=== PATIENT | female | born 1935 | race Caucasian/White ===

== ENCOUNTER 2017-06-21 03:02 | Observation (INO) | payer MEDICARE, BC ==
[2017-06-21] MEDS ORDERED: Budesonide 0.5 MG/2 ML Neb Susp ONE (03:33)
[2017-06-21] MEDS ORDERED: Albuterol/Ipratropium 3.0-0.5 MG/3 ML Neb Soln ONE (03:33)
[2017-06-21] MEDS ORDERED: predniSONE 10 MG Tab ONE (04:00)
[2017-06-21] MEDS ORDERED: methylPREDNISolone Sodium Succinate 125 MG/2 ML SDV ONE (05:47)
[2017-06-21] MEDS: methylPREDNISolone Sodium Succinate 125 MG/2 ML SDV IVPUSH SCH ×3 (06:00→17:56)
[2017-06-21] MEDS ORDERED: Acetaminophen 325 MG Tab PO PRN (06:25)
[2017-06-21] MEDS ORDERED: Acetaminophen 650 MG Supp RECTAL PRN (06:25)
[2017-06-21] MEDS ORDERED: Albuterol 0.083% 2.5 MG/3 ML Neb Soln INH PRN (06:27)
[2017-06-21] MEDS ORDERED: Sodium Chloride 0.9% 10 ML Syringe FLUSH PRN (06:39)
[2017-06-21] MEDS ORDERED: Albuterol/Ipratropium 3.0-0.5 MG/3 ML Neb Soln NEB PRN (06:40)
[2017-06-21] MEDS ORDERED: Nicotine Polacrilex 2 MG Gum CHEW PRN (06:44)
[2017-06-21] MEDS: Albuterol/Ipratropium 3.0-0.5 MG/3 ML Neb Soln NEB SCH ×4 (07:33→20:42)
--- NOTE | 2017-06-21 08:43 | CR ---
Chest 1V Frontal HISTORY: SOB COMPARISON: 06/11/2015 FINDINGS: Lungs are hyperinflated with flattening of the diaphragm consistent with COPD. No acute infiltrate is identified. Cardiomediastinal silhouette is within normal limits. No vascular redistribution or pleu ral fluid can be seen. Bony structures and soft tissues are unremarkable. IMPRESSION: Prominent COPD. No acute chest abnormality or significant interval change is identified.
--- NOTE | 2017-06-21 12:20 | HP ---
IDENTIFYING DATA: Janine Babb is an 81-year-old single female from [place], [place]. CHIEF COMPLAINT: "I am short of breath." HISTORY OF PRESENT ILLNESS: Elderly female has a history of previous and ongoing tobacco use with advanced chronic obstructive pulmonary disease. She uses maintenance Anoro Ellipta inhaler as well as p.r.n. use of a rescue albuterol inhaler. Additionally, she requires oxygen continuously with daytime activities as well as nighttime use with a concentrator. She reports an approximate 48-hour history of increasing shortness of breath, chest tightness, and wheeze. She has had no fevers, chills, sore throat, nasal congestion, coryza, or purulent sputum production. Influenza and pneumococcal vaccines are current. With exacerbation of chronic respiratory symptoms, she presented to the emergency room and is now admitted to observation. PAST MEDICAL HISTORY: She has a known history of hypothyroidism with levothyroxine replacement therapy. Additionally, the records indicate mild visual impairment of macular degeneration as well as her underlying emphysematous lung disease. ALLERGIES: NONE NOTED. MEDICATIONS: 1. Anoro Ellipta 62.5/25 mcg inhaler 1 puff once daily. 2. Levothyroxine 75 mcg daily. 3. Albuterol metered-dose inhaler 2 puffs q.4 hours p.r.n. dyspnea. 4. Mirtazapine 30 mg at bedtime. 5. MiraLAX 17 g daily p.r.n. constipation. 6. Multivitamins 1 daily. 7. Calcium carbonate with vitamin D 600/200 mg b.i.d. 8. [place]-3 fish oil capsules 1000 mg daily. HABITS: Continues to smoke though consumption is decreased from 1 pack per day to current use of 3 cigarettes daily. Caffeine intake varies from 2 to many cups of coffee daily dependent on daily activities. Alcohol use is rare at less than 1 drink per week. SOCIAL HISTORY: Retired, single, currently residing in her independent dwelling in [place]. The family lives in the immediate vicinity and provides assistance with housekeeping and meal preparation. She does perform light household work. She continues to drive. FAMILY HISTORY: Denies familial history of acute respiratory infections. REVIEW OF SYSTEMS: NEUROLOGIC: Does have mild visual impairment, though with corrective lenses she is able to read standard print. No history of cataracts, glaucoma, strokes, or seizures. Does have slight decline in auditory acuity. CARDIAC: No history of hypertension, diabetes, congenital heart disease, rheumatic fever, murmur, LA, congestive heart failure, chest pain, palpitations, or syncope. RESPIRATORY: Chronic obstructive pulmonary disease. No acute febrile illnesses. Denies a history of tuberculosis. GI: Denies hepatitis, jaundice, gallbladder disease, chronic dyspepsia, nausea, diarrhea. Constipation is managed with p.r.n. use of laxatives. : Rises twice nightly to void. No urinary incontinence. No history of chronic renal disease. MUSCULOSKELETAL: Denies arthralgias. PHYSICAL EXAMINATION: GENERAL: Appearance is that of an elderly mildly dyspneic female with pursed lip breathing. VITAL SIGNS: Afebrile. Respiratory rate 22, O2 saturations maintained greater than 90% with supplemental O2 at 2 L by nasal cannula. HEENT: Canals and TMs are normal. Pupils are reactive to light. Sclerae are anicteric. Oral mucosa is mildly dry on presentation. NECK: No adenopathy or thyromegaly. Brisk carotid pulses. No bruits or JVD. LUNGS: Symmetrical resonant, markedly diminished sounds, mild end-expiratory wheezes. No rales, or rhonchi heard. No retractions. Increased AP chest diameter is noted. HEART: Regular with distant sounds. No murmurs or gallops. Normal S1, S2. ABDOMEN: Soft, nontender, and nondistended. No organomegaly. Active sounds. Good femoral pulses. No abdominal bruits or CVA pain. EXTREMITIES: Good radial and posterior tibial pulses. No open lesions. Slight edema at the ankles bilaterally. SKIN: Warm and pink. Brisk capillary refill. LABORATORY DATA: Chest x-ray, no acute infiltrates. WBC within normal range. IMPRESSION: 1. Chronic obstructive pulmonary disease with acute exacerbation. 2. Ongoing tobacco use. 3. Hypothyroidism with levothyroxine replacement therapy. 4. History of sleep disruption with bedtime use of Remeron. PLAN: The patient will be admitted to observation bed at the medical floor. We will provide oxygen, IV Solu-Medrol, and inhaled bronchodilator therapies with scheduled and p.r.n. use of DuoNeb by nebulizer therapies. Continue with nasal cannula oxygen at 2 L/minute. Provide a low-sodium diet assistance with performance of ADLs and her maintenance thyroid medications. Full code status is instituted. Anticipate a hospital stay of less than 48 hours with return home with family supervision. Does not feel she has a need for home care services in the residence. At the current time if febrile illness develops or she has indications of acute pulmonary sepsis with purulent sputum production, we will consider initiation of antibiotic therapies. Gaurav Lawson MD /[id number]
[2017-06-21] MEDS: LEVOTHYROXINE 75 MCG PO SCH (16:17)
[2017-06-21] MEDS: Mirtazapine 15 MG Tab PO SCH (20:43)
[2017-06-22] MEDS: methylPREDNISolone Sodium Succinate 125 MG/2 ML SDV IVPUSH SCH ×2 (00:26→05:42)
--- NOTE | 2017-06-22 06:05 | PCM.SN ---
- Free Text/Narrative Note: Time: 05:30 am. Mrs. Babb IV has infiltrated, IV Solumedrol 125 mg due 0600 0; tolerating fluids, has 4 out 5 doses of Solumedrol, vital signs stable A: IV infiltrated P; will DC Solumedrol, order Prednisone 40mg po with breakfast. Continue present plan of care.
[2017-06-22] MEDS: Albuterol/Ipratropium 3.0-0.5 MG/3 ML Neb Soln NEB SCH ×4 (07:15→21:18)
[2017-06-22] MEDS: LEVOTHYROXINE 75 MCG PO SCH (08:20)
[2017-06-22] MEDS ORDERED: Polyethylene Glycol 3350 Powder 17 GM Packet PO PRN (08:30)
[2017-06-22] MEDS: predniSONE 20 MG Tab PO SCH (08:36)
--- NOTE | 2017-06-22 10:13 | PCM.PN ---
- General Info Date of Service: 06/22/17 Subjective Update: Ms. Mayorga is an 81-year-old woman who was admitted early yesterday morning by Dr. Lawson with shortness of breath secondary to COPD exacerbation and underlying viral bronchitis. She has improved moderately since admission with less shortness of breath and cough. She has remained afebrile and has been hemodynamically stable. Continues to require increased level of supplemental oxygen. Functional Status: Reports: Tolerating Diet, Ambulating, Urinating - Review of Systems General: Reports: Weakness. Denies: Fever, Chills Pulmonary: Reports: Shortness of Breath, Cough. Denies: Pleuritic Chest Pain, Sputum, Hemoptysis, Wheezing Cardiovascular: Reports: Dyspnea on Exertion. Denies: Chest Pain, Palpitations , Orthopnea, PND, Edema Gastrointestinal: Reports: No Symptoms - Patient Data Vitals - Most Recent: Last Vital Signs Temp 97 F 06/22/17 07:00 Pulse 96 06/22/17 07:15 Resp 17 06/22/17 07:00 BP 106/55 L 06/22/17 07:00 Pulse Ox 79 L 06/22/17 07:00 Weight - Most Recent: 101 lb 15.985 oz I&O - Last 24 Hours: Intake & Output 06/21/17 06/22/17 06/22/17 22:59 06:59 14:59 Intake Total 300 200 Output Total 600 300 Balance 300 -400 -300 Lab Results Last 24 Hours: Laboratory Results - last 24 hr 06/22/17 Range/Units 04:15 Sodium 144 (140-148) mmol/L Potassium 4.5 (3.6-5.2) mmol/L Chloride 103 (100-108) mmol/L Carbon Dioxide 36 H (21-32) mmol/L Anion Gap 9.5 (5.0-14.0) mmol/L BUN 17 (7-18) mg/dL Creatinine 0.7 (0.6-1.0) mg/dL Est Cr Clr Drug Dosing 45.26 mL/min Estimated GFR (MDRD) > 60 (>60) Glucose 142 H (74-106) mg/dL Calcium 9.4 (8.5-10.1) mg/dL Med Orders - Current: Current Medications Acetaminophen (Tylenol) 650 mg PO Q4H PRN PRN Reason: Pain/Fever Albuterol/Ipratropium (Duoneb 3.0-0.5 Mg/3 Ml) 3 ml NEB QIDRT [facility] Last Admin: 06/22/17 07:15 Dose: 3 ml Albuterol/Ipratropium (Duoneb 3.0-0.5 Mg/3 Ml) 3 ml NEB Q3H PRN PRN Reason: Shortness of Breath Levothyroxine Sodium (Levothyroxine) 75 mcg PO ACBREAKFAST [facility] Last Admin: 06/22/17 08:20 Dose: 75 mcg Mirtazapine (Remeron) 30 mg PO BEDTIME [facility] Last Admin: 06/21/17 20:43 Dose: 30 mg Nicotine Polacrilex (Nicorelief) 2 mg CHEW Q2H PRN PRN Reason: tobacco craving Polyethylene Glycol (Miralax) 17 gm PO DAILY PRN PRN Reason: Constipation Last Admin: 06/22/17 10:04 Dose: 17 gm Prednisone (Prednisone) 40 mg PO WITHBREAKFAST [facility] Last Admin: 06/22/17 08:36 Dose: 40 mg Sodium Chloride (Saline Flush) 10 ml FLUSH ASDIRECTED PRN PRN Reason: Keep Vein Open Discontinued Medications Acetaminophen (Tylenol) 650 mg RECTAL Q4H PRN PRN Reason: Pain/Fever Albuterol (Proventil Neb Soln) 2.5 mg INH Q2H PRN PRN Reason: Shortness of Breath Albuterol/Ipratropium (Duoneb 3.0-0.5 Mg/3 Ml) 3 ml .ROUTE .STK-MED ONE Stop: 06/21/17 03:34 Budesonide (Pulmicort) 0.5 mg .ROUTE .STK-MED ONE Stop: 06/21/17 03:34 Methylprednisolone Sodium Succinate (Solu-Medrol) 125 mg IVPUSH Q6H [facility] Stop: 06/22/17 06:01 Last Admin: 06/22/17 05:42 Dose: Not Given Methylprednisolone Sodium Succinate (Solu-Medrol) Confirm Administered Dose 125 mg .ROUTE .STK-MED ONE Stop: 06/21/17 05:48 Last Admin: 06/21/17 09:00 Dose: Not Given Prednisone (Prednisone) 40 mg .ROUTE .STK-MED ONE Stop: 06/21/17 04:01 - Exam Quality Assessment: Supplemental Oxygen, DVT Prophylaxis General: Alert, Oriented, Cooperative, Mild Distress Lungs: Decreased Breath Sounds. No: Rales, Rhonchi, Rub, Wheezing Cardiovascular: Regular Rate, Regular Rhythm, No Murmurs GI/Abdominal Exam: Soft, Non-Tender, No Organomegaly, No Distention Extremities: Non-Tender, No Pedal Edema Skin: Warm, Dry, Intact - Problem List Review Problem List Initiated/Reviewed/Updated: Yes - My Orders Last 24 Hours: My Active Orders 06/22/17 08:30 Polyethylene Glycol 3350 [MiraLAX] 17 gm PO DAILY PRN - Plan Plan:: ASSESSMENT AND PLAN COPD EXACERBATION SECONDARY TO BRONCHITIS-likely viral in nature, no indication for antibiotic therapy at the present time. She has improved since admission with less shortness of breath and cough. -Nebulizer therapy as ordered -Supplemental oxygen as needed -Prednisone 40 mg by mouth daily -Continue to hold on antibiotic therapy with no evidence of underlying bacterial infection at the present time HYPOXIC RESPIRATORY FAILURE-secondary to COPD exacerbation as above -Management as above NICOTINIC DEPENDENCE -Nicotinic gum as needed MAINTENANCE ISSUES -DVT prophylaxis; SCUDs -GI prophylaxis; not indicated -Alejandro catheter; not indicated -Nutrition; regular diet -Nicotinic dependence; as above CODE STATUS-FULL CODE ADMISSION STATUS-this patient will be admitted to observation status, expect no more than a one night hospital stay for evaluation and management of problems as outlined above. DISPOSITION-anticipate discharge to home after the hospital stay. PRIMARY CARE PROVIDER-Dr. Wilhelm
[2017-06-22] MEDS ORDERED: Bisacodyl 5 MG Tab PO PRN (18:05)
[2017-06-22] MEDS: Mirtazapine 15 MG Tab PO SCH (21:15)
[2017-06-23] MEDS: Albuterol/Ipratropium 3.0-0.5 MG/3 ML Neb Soln NEB SCH ×2 (07:33→10:48)
[2017-06-23] MEDS: LEVOTHYROXINE 75 MCG PO SCH (07:42)
[2017-06-23] MEDS: predniSONE 20 MG Tab PO SCH (09:09)
--- NOTE | 2017-06-23 09:51 | PCM.DCSUM1 ---
Discharge Summary - Hospital Course Brief History: This patient is an 81-year-old woman who was admitted to observation status through the emergency department with COPD exacerbation secondary to viral upper respiratory tract infection. - Discharge Data Discharge Date: 06/23/17 Discharge Disposition: Home, Self-Care 01 Condition: Fair - Discharge Diagnosis/Problem(s) (1) Bronchitis SNOMED Code(s): 97006626 ICD Code: J40 - BRONCHITIS, NOT SPECIFIED ACUTE OR CHRONIC Status: Acute Current Visit: Yes (2) Chronic respiratory failure with hypoxia Status: Acute Current Visit: No (3) Asthma exacerbation in COPD SNOMED Code(s): 34488888892513800 ICD Code: J44.1 - CHRONIC OBSTRUCTIVE PULMONARY DISEASE W (ACUTE) EXACERBATION; J45.901 - UNSPECIFIED ASTHMA WITH (ACUTE) EXACERBATION Status: Acute Current Visit: No (4) Tobacco dependence syndrome SNOMED Code(s): 71732910 ICD Code: F17.200 - NICOTINE DEPENDENCE, UNSPECIFIED, UNCOMPLICATED Status : Chronic Current Visit: No - Patient Summary/Data Hospital Course: This patient is an 81-year-old woman with known oxygen-dependent COPD. She developed symptoms of increased shortness of breath with the week prior to admission. This had been associated with occasional cough and nasal congestion with postnasal drainage. On evaluation emergency room department white count was normal and chest x-ray showed no obvious infiltrates. She was felt to have COPD exacerbation secondary to viral upper respiratory tract infection. She was admitted to observation status and given IV fluids for hydration as well as nebulizer therapy and Solu-Medrol. Oxygenation improved and the Solu-Medrol was converted to oral prednisone. She felt her breathing was improved from admission but not yet back to baseline. She was offered prescription for nebulizer therapy at home which she refused. She was also offered home care with home physical therapy occupational therapy which she also refused. She will be discharged on additional 4 days of prednisone 40 mg daily. Follow-up appointment will be scheduled with her primary care provider Dr. Wilhelm within one week. Activity will be as tolerated and she will resume her usual diet. - Patient Instructions Diet: Usual Diet as Tolerated Activity: As Tolerated Other/Special Instructions: Please schedule follow-up appointment with Dr. Wilhelm early next week. - Discharge Plan Prescriptions/Med Rec: Prednisone [IJD: predniSONE] 40 mg PO WITHBREAKFAST #8 tablet Home Medications: Home Meds Calcium Citrate/Vitamin D3 [Calcium Citrate + D] 1 each PO BID 05/13/14 [History ] Levothyroxine Sodium 75 mcg PO DAILY 05/13/14 [History] [place]-3 Fatty Acids [Fish Oil] 300 mg PO DAILY 05/13/14 [History] Albuterol [IMW: Albuterol HFA] 2 puff INH Q4H PRN 06/21/17 [History] Multivitamin [Daily Multiple Vitamin] 1 tab PO DAILY 06/21/17 [History] Umeclidinium Brm/Vilanterol Tr [Anoro Ellipta 62.5-25 Mcg INH] 1 each IH DAILY 06/21/17 [History] Prednisone [IJD: predniSONE] 40 mg PO WITHBREAKFAST #8 tablet 06/23/17 [Rx] Referrals: Arnulfo Wilhelm MD [Primary Care Provider] - - Patient Data Vitals - Most Recent: Last Vital Signs Temp 96.7 F 06/23/17 07:55 Pulse 92 06/23/17 07:55 Resp 17 06/23/17 07:55 BP 164/90 H 06/23/17 07:55 Pulse Ox 97 06/23/17 07:55 Weight - Most Recent: 101 lb 15.985 oz I&O - Last 24 hours: Intake & Output 06/22/17 06/23/17 06/23/17 22:59 06:59 14:59 Intake Total 980 120 Output Total 500 650 Balance 480 -530 Med Orders - Current: Current Medications Acetaminophen (Tylenol) 650 mg PO Q4H PRN PRN Reason: Pain/Fever Albuterol/Ipratropium (Duoneb 3.0-0.5 Mg/3 Ml) 3 ml NEB QIDRT [facility] Last Admin: 06/23/17 07:33 Dose: 3 ml Albuterol/Ipratropium (Duoneb 3.0-0.5 Mg/3 Ml) 3 ml NEB Q3H PRN PRN Reason: Shortness of Breath Bisacodyl (Dulcolax) 10 mg PO DAILY PRN PRN Reason: Constipation Last Admin: 06/22/17 18:40 Dose: 10 mg Levothyroxine Sodium (Levothyroxine) 75 mcg PO ACBREAKFAST [facility] Last Admin: 06/23/17 07:42 Dose: 75 mcg Mirtazapine (Remeron) 30 mg PO BEDTIME [facility] Last Admin: 06/22/17 21:15 Dose: 30 mg Nicotine Polacrilex (Nicorelief) 2 mg CHEW Q2H PRN PRN Reason: tobacco craving Polyethylene Glycol (Miralax) 17 gm PO DAILY PRN PRN Reason: Constipation Last Admin: 06/22/17 10:04 Dose: 17 gm Prednisone (Prednisone) 40 mg PO WITHBREAKFAST [facility] Last Admin: 06/23/17 09:09 Dose: 40 mg Sodium Chloride (Saline Flush) 10 ml FLUSH ASDIRECTED PRN PRN Reason: Keep Vein Open Discontinued Medications Acetaminophen (Tylenol) 650 mg RECTAL Q4H PRN PRN Reason: Pain/Fever Albuterol (Proventil Neb Soln) 2.5 mg INH Q2H PRN PRN Reason: Shortness of Breath Albuterol/Ipratropium (Duoneb 3.0-0.5 Mg/3 Ml) 3 ml .ROUTE .STK-MED ONE Stop: 06/21/17 03:34 Budesonide (Pulmicort) 0.5 mg .ROUTE .STK-MED ONE Stop: 06/21/17 03:34 Methylprednisolone Sodium Succinate (Solu-Medrol) 125 mg IVPUSH Q6H [facility] Stop: 06/22/17 06:01 Last Admin: 06/22/17 05:42 Dose: Not Given Methylprednisolone Sodium Succinate (Solu-Medrol) Confirm Administered Dose 125 mg .ROUTE .STK-MED ONE Stop: 06/21/17 05:48 Last Admin: 06/21/17 09:00 Dose: Not Given Prednisone (Prednisone) 40 mg .ROUTE .STK-MED ONE Stop: 06/21/17 04:01 *Q Meaningful Use (DIS) - VTE *Q VTE Criteria *Q: - Stroke *Q Stroke Criteria *Q: - AMI *Q AMI Criteria *Q:
[2017-06-23 11:17] VITALS: BP 145/83
== END 2017-06-23 12:45 | disposition home or self-care (01) ==
LOC: JP.ED 03:02 → JP.MS 04:30
PROVIDERS: ADMIT Family Medicine; ATTEND Family Medicine
DX: J20.9 Acute bronchitis, unspecified (principal); J44.1 Chronic obstructive pulmonary disease with (acute) exacerbation; J45.901 Unspecified asthma with (acute) exacerbation; J96.11 Chronic respiratory failure with hypoxia; E03.9 Hypothyroidism, unspecified; F17.200 Nicotine dependence, unspecified, uncomplicated; Z99.81 Dependence on supplemental oxygen; Z79.899 Other long term (current) drug therapy
CPT/HCPCS: 36415; 36600; 71045; 80048; 82803; 84484; 85027; 94640; 99285; A9270; J2930; J7620; J7626; 93010; 96374; 96376; 99217; 99225; G0378

== ENCOUNTER 2017-07-16 13:13 | Emergency (ER) | payer MEDICARE, BC ==
[2017-07-16] MEDS ORDERED: Albuterol/Ipratropium 3.0-0.5 MG/3 ML Neb Soln NEB ONE (14:16)
--- NOTE | 2017-07-16 14:21 | EDM.PDOC ---
ED HPI GENERAL MEDICAL PROBLEM - General Chief Complaint: Respiratory Problem Stated Complaint: SOB Time Seen by Provider: 07/16/17 14:10 Source of Information: Reports: Patient, Old Records History Limitations: Reports: No Limitations - History of Present Illness INITIAL COMMENTS - FREE TEXT/NARRATIVE: 81 yo female with COPD and home oxygen at 2 liters/min/nc presents with a slight worsening of her chronic SOB since yesterday. She has had a mild, non- productive cough. No fever. Does not have or want a nebulizer at home. Onset: Gradual Onset Date: 07/15/17 Duration: Hour(s):, Constant Location: Reports: Chest Quality: Reports: Other (no pain) Severity: Mild Improves with: Reports: Rest Worsens with: Reports: Movement Context: Reports: Other (has known COPD) Associated Symptoms: Reports: Cough (dry), Shortness of Breath (mild). Denies: Fever/Chills Treatments CLINICAL QUALITY ASSURANCE SPECIALIST: Reports: Other (see below) (none) - Related Data Allergies Allergy/AdvReac Type Severity Reaction Status Date / Time No Known Allergies Allergy Verified 07/16/17 13:25 Home Meds: Home Meds Calcium Citrate/Vitamin D3 [Calcium Citrate + D] 1 each PO BID 05/13/14 [History ] Levothyroxine Sodium 75 mcg PO DAILY 05/13/14 [History] [place]-3 Fatty Acids [Fish Oil] 300 mg PO DAILY 05/13/14 [History] Albuterol [IMW: Albuterol HFA] 2 puff INH Q4H PRN 06/21/17 [History] Multivitamin [Daily Multiple Vitamin] 1 tab PO DAILY 06/21/17 [History] Umeclidinium Brm/Vilanterol Tr [Anoro Ellipta 62.5-25 Mcg INH] 1 each IH DAILY 06/21/17 [History] Prednisone [IJD: predniSONE] 5 mg PO WITHBREAKFAST 07/16/17 [History] Past Medical History HEENT History: Reports: Cataract Cardiovascular History: Reports: SOB on Exertion Respiratory History: Reports: COPD, Pneumonia, Recurrent, SOB [employer] History: Reports: Endocrine/Metabolic History: Reports: Hypothyroidism - Past Surgical History HEENT Surgical History: Reports: Cataract Surgery GI Surgical History: Reports: Appendectomy Other Musculoskeletal Surgeries/Procedures:: dislocated hip Social & Family History - Tobacco Use Smoking Status *Q: Former Smoker Years of Tobacco use: 60 Packs/Tins Daily: 1 Used Tobacco, but Quit: Yes Month Tobacco Last Used: 1 month Second Hand Smoke Exposure: Yes - Caffeine Use Caffeine Use: Reports: Coffee - Alcohol Use Days Per Week of Alcohol Use: 2 Number of Drinks Per Day: 1 Total Drinks Per Week: 2 - Recreational Drug Use Recreational Drug Use: No ED ROS GENERAL - Review of Systems Review Of Systems: See Below Constitutional: Reports: No Symptoms. Denies: Fever, Chills HEENT: Reports: No Symptoms Respiratory: Reports: Shortness of Breath (mild), Cough (dry). Denies: Wheezing , Pleuritic Chest Pain, Sputum, Hemoptysis Cardiovascular: Reports: No Symptoms GI/Abdominal: Reports: No Symptoms : Reports: No Symptoms Skin: Reports: No Symptoms Neurological: Reports: No Symptoms ED EXAM, GENERAL - Physical Exam Exam: See Below Exam Limited By: No Limitations General Appearance: Alert, WD/WN, No Apparent Distress, Thin Eye Exam: Bilateral Eye: Normal Inspection Ears: Normal External Exam, Normal Canal, Hearing Grossly Normal, Normal TMs Ear Exam: Bilateral Ear: Auricle Normal, Canal Normal, TM normal Nose: Normal Inspection, Normal Mucosa, No Blood Throat/Mouth: Normal Inspection, Normal Lips, Normal Oropharynx, Normal Voice, No Airway Compromise Head: Atraumatic, Normocephalic Neck: Normal Inspection Respiratory/Chest: No Respiratory Distress, Lungs Clear, No Accessory Muscle Use , Decreased Breath Sounds. No: Respiratory Distress, Rhonchi, Wheezing, Stridor , Pleural Rub, Retractions, Prolonged Expiration Cardiovascular: Regular Rate, Rhythm, No Edema GI/Abdominal: Normal Bowel Sounds, Soft, Non-Tender Back Exam: Normal Inspection Extremities: Normal Inspection, Normal Range of Motion, Non-Tender, No Pedal Edema Neurological: Alert, Oriented, CN II-XII Intact, Normal Cognition, No Motor/ Sensory Deficits Psychiatric: Normal Affect, Normal Mood Skin Exam: Warm, Dry, Intact, Normal Color, No Rash Lymphatic: No Adenopathy Course - Vital Signs Text/Narrative:: Minimal change with Duoneb. Wants to go home. Last Recorded V/S: Last Vital Signs Temp 35.9 C 07/16/17 13:18 Pulse 116 H 07/16/17 13:18 Resp 28 H 07/16/17 13:18 BP 145/119 H 07/16/17 13:18 Pulse Ox 92 L 07/16/17 13:18 - Orders/Labs/Meds Orders: Active Orders 24 hr Category Date Time Status RT Aerosol Therapy [RC] ASDIRECTED Care 07/16/17 14:17 Active Labs: Laboratory Tests 07/16/17 07/16/17 Range/Units 14:28 14:28 WBC 9.1 (4.5-11.0) K/uL RBC 4.59 (3.30-5.50) M/uL Hgb 13.6 (12.0-15.0) g/dL Hct 43.1 (36.0-48.0) % MCV 94 (80-98) fL MCH 30 (27-31) pg MCHC 32 (32-36) % Plt Count 301 (150-400) K/uL C-Reactive Protein 0.70 H (0.0-0.3) mg/dL Meds: Medications Discontinued Medications Generic Name Dose Route Start Last Admin Trade Name Freq PRN Reason Stop Dose Admin Albuterol/Ipratropium 3 ml 07/16/17 14:16 07/16/17 14:37 Duoneb 3.0-0.5 Mg/3 Ml NEB 07/16/17 14:17 3 ml ONETIME ONE Administration Departure - Departure Time of Disposition: 15:12 Disposition: Home, Self-Care 01 Condition: Fair Clinical Impression: COPD (chronic obstructive pulmonary disease) Qualifiers: COPD type: emphysema Emphysema type: panlobular Qualified Code(s): J43.1 - Panlobular emphysema - Discharge Information Referrals: Arnulfo Wilhelm MD [Primary Care Provider] - Forms: ED Department Discharge - My Orders Last 24 Hours: My Active Orders 07/16/17 14:17 RT Aerosol Therapy [RC] ASDIRECTED - Assessment/Plan Last 24 Hours: My Active Orders 07/16/17 14:17 RT Aerosol Therapy [RC] ASDIRECTED
[2017-07-16 15:28] VITALS: BP 149/79
== END 2017-07-16 15:36 | disposition home or self-care (01) ==
LOC: JP.ED 13:13
DX: J43.1 Panlobular emphysema (principal); E03.9 Hypothyroidism, unspecified; Z87.891 Personal history of nicotine dependence; Z79.899 Other long term (current) drug therapy; Z99.81 Dependence on supplemental oxygen
CPT/HCPCS: 36415; 85027; 86140; 94640; 99285; J7620; 99284

== ENCOUNTER 2017-08-17 20:46 | Inpatient (IN) | payer MEDICARE, BC ==
[2017-08-17] MEDS ORDERED: Albuterol/Ipratropium 3.0-0.5 MG/3 ML Neb Soln NEB ONE (20:47)
[2017-08-17] MEDS ORDERED: Albuterol/Ipratropium 3.0-0.5 MG/3 ML Neb Soln ONE (20:47)
[2017-08-17] MEDS ORDERED: Sodium Chloride 0.9% 10 ML Syringe FLUSH PRN (20:48)
[2017-08-17] MEDS ORDERED: methylPREDNISolone Sodium Succinate 40 MG/1 ML SDV IVPUSH ONE (20:50)
--- NOTE | 2017-08-17 20:56 | EDM.PDOC ---
ED HPI GENERAL MEDICAL PROBLEM - General Chief Complaint: Respiratory Problem Stated Complaint: COPD Time Seen by Provider: 08/17/17 20:51 Source of Information: Reports: Patient, Old Records History Limitations: Reports: Other (Patient too SOB to provide good history.) - History of Present Illness INITIAL COMMENTS - FREE TEXT/NARRATIVE: Onset this afternoon of increasing SOB. Is on oxygen at 2 liters/min/nc around the clock. Used her nebulizer last a couple hrs ago, is not sure of the medication in this tx. No fever. Daughter later says her mom here has been having increasing difficulty with breathing for a couple weeks since her prednisone was stopped. Has not seen her doctor over this time interval. Quit smoking a couple mos ago. Eating and drinking somewhat less than normal lately. Had recently bumped her own oxygen from 2 to 5 liters/min before coming in today. Onset: Gradual Onset Date: 08/03/17 Duration: Week(s):, Getting Worse Location: Reports: Chest Quality: Reports: Other (no reported pain) Severity: Moderate Improves with: Reports: Rest Worsens with: Reports: Movement (exertion) Context: Reports: Other (severe end stage COPD) Associated Symptoms: Reports: Shortness of Breath. 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 (see below) (oxygen and neb tx's per her usual) denies pain Pain Score (Numeric/FACES): 0 - Related Data Allergies Allergy/AdvReac Type Severity Reaction Status Date / Time No Known Allergies Allergy Verified 08/17/17 20:52 Home Meds: Home Meds Calcium Citrate/Vitamin D3 [Calcium Citrate + D] 1 each PO BID 05/13/14 [History ] Levothyroxine Sodium 75 mcg PO DAILY 05/13/14 [History] Harrison-3 Fatty Acids [Fish Oil] 300 mg PO DAILY 05/13/14 [History] Albuterol [IMW: Albuterol HFA] 2 puff INH Q4H PRN 06/21/17 [History] Multivitamin [Daily Multiple Vitamin] 1 tab PO DAILY 06/21/17 [History] Umeclidinium Brm/Vilanterol Tr [Anoro Ellipta 62.5-25 Mcg INH] 1 each IH DAILY 06/21/17 [History] Prednisone [IJD: predniSONE] 5 mg PO WITHBREAKFAST 02/18/18 [History] Past Medical History HEENT History: Reports: Cataract Cardiovascular History: Reports: SOB on Exertion Respiratory History: Reports: COPD, Pneumonia, Recurrent, 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: Endocrine/Metabolic History: Reports: Hypothyroidism - Past Surgical History HEENT Surgical History: Reports: Cataract Surgery GI Surgical History: Reports: Appendectomy Other Musculoskeletal Surgeries/Procedures:: dislocated hip Social & Family History - Tobacco Use Smoking Status *Q: Former Smoker Years of Tobacco use: 60 Packs/Tins Daily: 1 Used Tobacco, but Quit: Yes Month/Year Tobacco Last Used: 1 month Second Hand Smoke Exposure: Yes - Caffeine Use Caffeine Use: Reports: Coffee - Alcohol Use Days Per Week of Alcohol Use: 2 Number of Drinks Per Day: 1 Total Drinks Per Week: 2 - Recreational Drug Use Recreational Drug Use: No ED ROS GENERAL - Review of Systems Review Of Systems: See Below Constitutional: Reports: No Symptoms HEENT: Reports: No Symptoms Respiratory: Reports: Shortness of Breath, Wheezing. Denies: Pleuritic Chest Pain, Cough, Sputum, Hemoptysis Cardiovascular: Reports: No Symptoms Endocrine: Reports: No Symptoms GI/Abdominal: Reports: No Symptoms : Reports: No Symptoms Musculoskeletal: Reports: No Symptoms Skin: Reports: No Symptoms Neurological: Reports: No Symptoms Psychiatric: Reports: Anxiety ED EXAM, GENERAL - Physical Exam Exam: See Below Exam Limited By: No Limitations General Appearance: Alert, WD/WN, No Apparent Distress, Anxious Eye Exam: Bilateral Eye: Normal Inspection (bilateral lens implants) Ears: Normal External Exam, Normal Canal, Hearing Grossly Normal, Normal TMs Ear Exam: Bilateral Ear: Auricle Normal, Canal Normal, TM normal Nose: Normal Inspection, Normal Mucosa, No Blood Throat/Mouth: Normal Inspection, Normal Lips, Normal Oropharynx, Normal Voice, No Airway Compromise Head: Atraumatic, Normocephalic Neck: Normal Inspection, Supple Respiratory/Chest: Respiratory Distress, Decreased Breath Sounds, Wheezing, Other (tachypnea). No: Retractions Cardiovascular: Tachycardia GI/Abdominal: Normal Bowel Sounds, Soft, Non-Tender, No Distention Back Exam: Normal Inspection. No: CVA Tenderness (R), CVA Tenderness (L) Extremities: Normal Inspection, Normal Range of Motion, Non-Tender, No Pedal Edema Neurological: Alert, Oriented, CN II-XII Intact, Normal Cognition, No Motor/ Sensory Deficits Psychiatric: Normal Affect, Anxious Skin Exam: Warm, Dry, Intact, Normal Color, No Rash Lymphatic: No Adenopathy Course - Vital Signs Last Recorded V/S: Last Vital Signs Temp 35.3 C 08/17/17 21:41 Pulse 108 H 08/17/17 23:05 Resp 21 H 08/17/17 23:05 BP 134/58 L 08/17/17 23:05 Pulse Ox 99 08/17/17 23:05 - Orders/Labs/Meds Orders: Active Orders 24 hr Category Date Time Status Cardiac Monitoring [RC] .As Directed Care 08/17/17 20:48 Active RT Aerosol Therapy [RC] ASDIRECTED Care 08/17/17 20:47 Active Chest 1V Frontal [CR] Stat Exams 08/17/17 20:49 Taken Sodium Chloride 0.9% [Saline Flush] Med 08/17/17 20:48 Active 10 ml FLUSH ASDIRECTED PRN Saline Lock Insert [OM.PC] Routine Oth 08/17/17 20:48 Ordered Medication Orders Sodium Chloride (Saline Flush) 10 ml FLUSH ASDIRECTED PRN PRN Reason: Keep Vein Open Last Admin: 08/17/17 21:26 Dose: 10 ml Labs: Laboratory Tests 08/17/17 08/17/17 08/17/17 Range/Units 20:56 21:11 21:11 WBC 11.3 H (4.5-11.0) K/uL RBC 4.76 (3.30-5.50) M/uL Hgb 14.2 (12.0-15.0) g/dL Hct 45.3 (36.0-48.0) % MCV 95 (80-98) fL MCH 30 (27-31) pg MCHC 31 L (32-36) % Plt Count 345 (150-400) K/uL D-Dimer, Quantitative (0.0-400.0) ng/mL Puncture Site Tr.radial ABG pH 7.329 L (7.350-7.450) ABG pCO2 70.1 H* (35.0-42.0) mmHg ABG pO2 124.0 H (75.0-100.0) mmHg ABG HCO3 35.8 H (22.0-26.0) mmol/L ABG Total CO2 32.0 H (21.0-25.0) mmol/L ABG O2 Saturation 98.3 H (95.0-98.0) % ABG O2 Content 19.5 (15.0-23.0) %vol ABG Base Excess 7.5 mm/L ABG Hemoglobin 14.2 (12.0-16.0) g/dL ABG Oxyhemoglobin 97.3 % ABG Carboxyhemoglobin 0.5 (0.0-1.6) % ABG Methemoglobin 0.5 % Fab Test Passed O2 Delivery Device Nasal cannula Oxygen Flow Rate 2 L Sodium 145 (140-148) mmol/L Potassium 4.5 (3.6-5.2) mmol/L Chloride 102 (100-108) mmol/L Carbon Dioxide 37 H (21-32) mmol/L Anion Gap 10.5 (5.0-14.0) mmol/L BUN 18 (7-18) mg/dL Creatinine 0.7 (0.6-1.0) mg/dL Est Cr Clr Drug Dosing 44.37 mL/min Estimated GFR (MDRD) > 60 (>60) Glucose 116 H (74-106) mg/dL Calcium 9.4 (8.5-10.1) mg/dL Troponin I < 0.017 (0.000-0.056) ng/mL 08/17/17 Range/Units 21:45 WBC (4.5-11.0) K/uL RBC (3.30-5.50) M/uL Hgb (12.0-15.0) g/dL Hct (36.0-48.0) % MCV (80-98) fL MCH (27-31) pg MCHC (32-36) % Plt Count (150-400) K/uL D-Dimer, Quantitative 185 (0.0-400.0) ng/mL Puncture Site ABG pH (7.350-7.450) ABG pCO2 (35.0-42.0) mmHg ABG pO2 (75.0-100.0) mmHg ABG HCO3 (22.0-26.0) mmol/L ABG Total CO2 (21.0-25.0) mmol/L ABG O2 Saturation (95.0-98.0) % ABG O2 Content (15.0-23.0) %vol ABG Base Excess mm/L ABG Hemoglobin (12.0-16.0) g/dL ABG Oxyhemoglobin % ABG Carboxyhemoglobin (0.0-1.6) % ABG Methemoglobin % Fab Test O2 Delivery Device Oxygen Flow Rate L Sodium (140-148) mmol/L Potassium (3.6-5.2) mmol/L Chloride (100-108) mmol/L Carbon Dioxide (21-32) mmol/L Anion Gap (5.0-14.0) mmol/L BUN (7-18) mg/dL Creatinine (0.6-1.0) mg/dL Est Cr Clr Drug Dosing mL/min Estimated GFR (MDRD) (>60) Glucose (74-106) mg/dL Calcium (8.5-10.1) mg/dL Troponin I (0.000-0.056) ng/mL Meds: Medications Generic Name Dose Route Start Last Admin Trade Name Freq PRN Reason Stop Dose Admin Sodium Chloride 10 ml 08/17/17 20:48 08/17/17 21:26 Saline Flush FLUSH 10 ml ASDIRECTED PRN Administration Keep Vein Open Discontinued Medications Generic Name Dose Route Start Last Admin Trade Name Freq PRN Reason Stop Dose Admin Albuterol/Ipratropium 3 ml 08/17/17 20:47 08/17/17 20:50 Duoneb 3.0-0.5 Mg/3 Ml NEB 08/17/17 20:48 3 ml ONETIME ONE Administration Lactated Ringer's 1,000 mls @ 1,000 mls/hr 08/17/17 21:49 08/17/17 22:02 Ringers, Lactated IV 08/17/17 22:48 1,000 mls/hr BOLUS ONE Administration Lorazepam 0.5 mg 08/17/17 21:00 08/17/17 21:25 Ativan IVPUSH 08/17/17 21:01 0.25 ml ONETIME ONE Administration Methylprednisolone Sodium Succinate 40 mg 08/17/17 20:50 08/17/17 21:21 Solu-Medrol IVPUSH 08/17/17 20:51 40 mg ONETIME ONE Administration - Radiology Interpretation Free Text/Narrative:: CXR-emphysematous changes only Departure - Departure Time of Disposition: 23:40 Disposition: Refer to Observation Clinical Impression: CO2 retention, COPD exacerbation, Anxiety - Discharge Information Referrals: Arnulfo Wilhelm MD [Primary Care Provider] - Forms: ED Department Discharge - My Orders Last 24 Hours: My Active Orders 08/17/17 20:47 RT Aerosol Therapy [RC] ASDIRECTED 08/17/17 20:48 Cardiac Monitoring [RC] .As Directed Sodium Chloride 0.9% [Saline Flush] 10 ml FLUSH ASDIRECTED PRN Saline Lock Insert [OM.PC] Routine 08/17/17 20:49 Chest 1V Frontal [CR] Stat - Assessment/Plan Last 24 Hours: My Active Orders 08/17/17 20:47 RT Aerosol Therapy [RC] ASDIRECTED 08/17/17 20:48 Cardiac Monitoring [RC] .As Directed Sodium Chloride 0.9% [Saline Flush] 10 ml FLUSH ASDIRECTED PRN Saline Lock Insert [OM.PC] Routine 08/17/17 20:49 Chest 1V Frontal [CR] Stat
[2017-08-17] MEDS ORDERED: LORazepam 2 MG/ML SDV IVPUSH ONE (21:00)
[2017-08-17] MEDS ORDERED: Lactated Ringers 1,000 ML IV ONE (21:49)
--- NOTE | 2017-08-18 00:41 | PCM.HP ---
H&P History of Present Illness - General Date of Service: 08/18/17 Admit Problem/Dx: Source of Information: Patient, Family, Old Records, Provider, RN Notes Reviewed History Limitations: Reports: No Limitations - History of Present Illness Initial Comments - Free Text/Narative: Ms. Babb is an 81-year-old woman who is admitted through the emergency department with COPD exacerbation and acute on chronic hypoxia and hypercapnia. At baseline she has fairly severe COPD and is oxygen dependent at home. Over the past week has had increased shortness of breath which became significantly worse today. On initial evaluation was tachycardic, blood gases showed worsening hypoxia and hypercapnia from baseline. She has had ongoing cough but it's unchanged from what she usually experiences, sputum has remained clear. She has had no fevers, chills, or sweats. White blood cell count is only modestly elevated and she has been afebrile while in the emergency department denies pain Pain Score (Numeric/FACES): 0 - Related Data Allergies/Adverse Reactions: Allergies Allergy/AdvReac Type Severity Reaction Status Date / Time No Known Allergies Allergy Verified 08/17/17 20:52 Home Medications: Home Meds Calcium Citrate/Vitamin D3 [Calcium Citrate + D] 1 each PO BID 05/13/14 [History ] Levothyroxine Sodium 75 mcg PO DAILY 05/13/14 [History] [place]chor-3 Fatty Acids [Fish Oil] 300 mg PO DAILY 05/13/14 [History] Albuterol [IMW: Albuterol HFA] 2 puff INH Q4H PRN 06/21/17 [History] Multivitamin [Daily Multiple Vitamin] 1 tab PO DAILY 06/21/17 [History] Umeclidinium Brm/Vilanterol Tr [Anoro Ellipta 62.5-25 Mcg INH] 1 each IH DAILY 06/21/17 [History] Prednisone [IJD: predniSONE] 5 mg PO WITHBREAKFAST 07/16/17 [History] Past Medical History HEENT History: Reports: Cataract Cardiovascular History: Reports: SOB on Exertion Respiratory History: Reports: COPD, Pneumonia, Recurrent, 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: Endocrine/Metabolic History: Reports: Hypothyroidism - Infectious Disease History Infectious Disease History: Reports: Chicken Pox, Measles, Mumps - Past Surgical History HEENT Surgical History: Reports: Cataract Surgery GI Surgical History: Reports: Appendectomy Other Musculoskeletal Surgeries/Procedures:: dislocated hip Social & Family History - Tobacco Use Smoking Status *Q: Former Smoker Years of Tobacco use: 60 Packs/Tins Daily: 1 Used Tobacco, but Quit: Yes Month/Year Tobacco Last Used: 1 month Second Hand Smoke Exposure: Yes - Caffeine Use Caffeine Use: Reports: Coffee - Alcohol Use Days Per Week of Alcohol Use: 2 Number of Drinks Per Day: 1 Total Drinks Per Week: 2 - Recreational Drug Use Recreational Drug Use: No H&P Review of Systems - Review of Systems: Review Of Systems: See Below General: Reports: Weakness, Decreased Appetite. Denies: Fever, Chills, Diaphoresis HEENT: Reports: No Symptoms Pulmonary: Reports: Shortness of Breath, Wheezing, Cough. Denies: Pleuritic Chest Pain, Sputum, Hemoptysis Cardiovascular: Reports: Dyspnea on Exertion. Denies: Chest Pain, Palpitations , Orthopnea, PND, Edema, Lightheadedness, Syncope Gastrointestinal: Reports: No Symptoms Genitourinary: Reports: No Symptoms Musculoskeletal: Reports: No Symptoms Skin: Reports: No Symptoms Psychiatric: Reports: No Symptoms Neurological: Reports: No Symptoms Hematologic/Lymphatic: Reports: No Symptoms Immunologic: Reports: No Symptoms Exam - Exam Exam: See Below - Vital Signs Vital Signs: Last Vital Signs Temp 95.6 F 08/17/17 21:41 Pulse 108 H 08/17/17 23:05 Resp 21 H 08/17/17 23:05 BP 134/58 L 08/17/17 23:05 Pulse Ox 99 08/17/17 23:05 Weight: 100 lb - Exam Quality Assessment: Supplemental Oxygen, DVT Prophylaxis General: Alert, Oriented, Cooperative, Moderate Distress HEENT: Conjunctiva Clear, Hearing Intact, Normal Nasal Septum, Posterior Pharynx Clear, Pupils Equal. No: Mucosa Moist & [place] Neck: Supple, Trachea Midline, +2 Carotid Pulse wo Bruit Lungs: Decreased Breath Sounds, Wheezing. No: Crackles, Rales, Rhonchi, Rub Cardiovascular: Regular Rhythm, Normal S1, Normal S2, Tachycardia. No: Systolic Murmur, Diastolic Murmur GI/Abdominal Exam: Soft, Non-Tender, No Organomegaly, No Distention Back Exam: Normal Inspection, Full Range of Motion Extremities: Non-Tender, No Pedal Edema Skin: Warm, Dry, Intact Neurological: Cranial Nerves Intact, Strength Equal Bilateral, Normal Speech, Normal Tone, Sensation Intact. No: Focal Deficit Neuro Extensive - Mental Status: Alert, Oriented x3, Normal Mood/Affect, Normal Cognition, Memory Intact - Patient Data Lab Results Last 24 hrs: Laboratory Results - last 24 hr 08/17/17 08/17/17 08/17/17 Range/Units 20:56 21:11 21:11 WBC 11.3 H (4.5-11.0) K/uL RBC 4.76 (3.30-5.50) M/uL Hgb 14.2 (12.0-15.0) g/dL Hct 45.3 (36.0-48.0) % MCV 95 (80-98) fL MCH 30 (27-31) pg MCHC 31 L (32-36) % Plt Count 345 (150-400) K/uL D-Dimer, Quantitative (0.0-400.0) ng/mL Puncture Site Tr.radial ABG pH 7.329 L (7.350-7.450) ABG pCO2 70.1 H* (35.0-42.0) mmHg ABG pO2 124.0 H (75.0-100.0) mmHg ABG HCO3 35.8 H (22.0-26.0) mmol/L ABG Total CO2 32.0 H (21.0-25.0) mmol/L ABG O2 Saturation 98.3 H (95.0-98.0) % ABG O2 Content 19.5 (15.0-23.0) %vol ABG Base Excess 7.5 mm/L ABG Hemoglobin 14.2 (12.0-16.0) g/dL ABG Oxyhemoglobin 97.3 % ABG Carboxyhemoglobin 0.5 (0.0-1.6) % ABG Methemoglobin 0.5 % Fab Test Passed O2 Delivery Device Nasal cannula Oxygen Flow Rate 2 L Sodium 145 (140-148) mmol/L Potassium 4.5 (3.6-5.2) mmol/L Chloride 102 (100-108) mmol/L Carbon Dioxide 37 H (21-32) mmol/L Anion Gap 10.5 (5.0-14.0) mmol/L BUN 18 (7-18) mg/dL Creatinine 0.7 (0.6-1.0) mg/dL Est Cr Clr Drug Dosing 44.37 mL/min Estimated GFR (MDRD) > 60 (>60) Glucose 116 H (74-106) mg/dL Calcium 9.4 (8.5-10.1) mg/dL Troponin I < 0.017 (0.000-0.056) ng/mL 08/17/17 Range/Units 21:45 WBC (4.5-11.0) K/uL RBC (3.30-5.50) M/uL Hgb (12.0-15.0) g/dL Hct (36.0-48.0) % MCV (80-98) fL MCH (27-31) pg MCHC (32-36) % Plt Count (150-400) K/uL D-Dimer, Quantitative 185 (0.0-400.0) ng/mL Puncture Site ABG pH (7.350-7.450) ABG pCO2 (35.0-42.0) mmHg ABG pO2 (75.0-100.0) mmHg ABG HCO3 (22.0-26.0) mmol/L ABG Total CO2 (21.0-25.0) mmol/L ABG O2 Saturation (95.0-98.0) % ABG O2 Content (15.0-23.0) %vol ABG Base Excess mm/L ABG Hemoglobin (12.0-16.0) g/dL ABG Oxyhemoglobin % ABG Carboxyhemoglobin (0.0-1.6) % ABG Methemoglobin % Fab Test O2 Delivery Device Oxygen Flow Rate L Sodium (140-148) mmol/L Potassium (3.6-5.2) mmol/L Chloride (100-108) mmol/L Carbon Dioxide (21-32) mmol/L Anion Gap (5.0-14.0) mmol/L BUN (7-18) mg/dL Creatinine (0.6-1.0) mg/dL Est Cr Clr Drug Dosing mL/min Estimated GFR (MDRD) (>60) Glucose (74-106) mg/dL Calcium (8.5-10.1) mg/dL Troponin I (0.000-0.056) ng/mL Result Diagrams: 08/17/17 21:11 08/17/17 21:11 *Q Meaningful Use (ADM) - VTE *Q VTE Criteria *Q: - VTE Risk Assess *Q Each Risk Factor Represents 1 Point: Abnormal Pulmonary Function (COPD) Total Score 1 Point Risk Factors: 1 Each Risk Factor Represents 2 Points: None Total Score 2 Point Risk Factors: 0 Each Risk Factor Represents 3 Points: Age 75 Years or Greater Total Score 3 Point Risk Factors: 3 Each Risk Factor Represents 5 Points: None Total Score 5 Point Risk Factors: 0 Venous Thromboembolism Risk Factor Score *Q: 4 - Stroke *Q Stroke Criteria *Q: - AMI *Q AMI Criteria *Q: Problem List Initiated/Reviewed/Updated: Yes Orders Last 24hrs: Active Orders 24 hr Category Date Time Status Patient Status Manage Transfer [TRANSFER] Routine ADT 08/18/17 00:29 Ordered Cardiac Monitoring [RC] .As Directed Care 08/17/17 20:48 Active RT Aerosol Therapy [RC] ASDIRECTED Care 08/17/17 20:47 Active Chest 1V Frontal [CR] Stat Exams 08/17/17 20:49 Taken Sodium Chloride 0.9% [Saline Flush] Med 08/17/17 20:48 Active 10 ml FLUSH ASDIRECTED PRN Saline Lock Insert [OM.PC] Routine Oth 08/17/17 20:48 Ordered Resuscitation Status Routine Resus Stat 08/18/17 00:31 Ordered Medication Orders Sodium Chloride (Saline Flush) 10 ml FLUSH ASDIRECTED PRN PRN Reason: Keep Vein Open Last Admin: 08/17/17 21:26 Dose: 10 ml Assessment/Plan Comment:: ASSESSMENT AND PLAN COPD EXACERBATION WITH ACUTE ON CHRONIC HYPOXIA AND HYPERCAPNIA-increased shortness of breath over the past week, significantly worse today. No evidence of significant underlying viral or bacterial infection on initial evaluation. -IV fluids for hydration -Nebulized albuterol and duo nebs -Solu-Medrol 40 mg IV every 6 hours -Hold on antibiotic therapy, no evidence of underlying bacterial infection HYPOTHYROIDISM -Continue outpatient thyroid replacement MAINTENANCE ISSUES -DVT prophylaxis; Lovenox 40 mg subcutaneous daily -GI prophylaxis; not indicated -Alejandro catheter; not indicated -Nutrition; regular diet -Nicotine dependence; not required CODE STATUS-FULL CODE, reviewed with patient and daughter this evening ADMISSION STATUS-this patient will be admitted to observation status, expect no more than a one night hospital stay for evaluation and management of problems as outlined above. DISPOSITION-anticipate discharge to home after the hospital stay. PRIMARY CARE PROVIDER-Dr. iWlhelm
[2017-08-18] MEDS ORDERED: Albuterol 8 GM Inhaler INH PRN (00:46)
[2017-08-18] MEDS ORDERED: Sodium Chloride 0.9% 10 ML Syringe FLUSH PRN (00:46)
[2017-08-18] MEDS ORDERED: oxyCODONE 5 MG Tab PO PRN (00:46)
[2017-08-18] MEDS ORDERED: Enoxaparin 40 MG/0.4 ML Syringe SUBCUT SCH (00:46)
[2017-08-18] MEDS ORDERED: methylPREDNISolone Sodium Succinate 40 MG/1 ML SDV IVPUSH SCH (00:46)
[2017-08-18] MEDS ORDERED: Polyethylene Glycol 3350 Powder 17 GM Packet PO PRN (00:46)
[2017-08-18] MEDS ORDERED: Acetaminophen 325 MG Tab PO PRN (00:46)
[2017-08-18] MEDS ORDERED: Ondansetron 4 MG/2 ML SDV IV PRN (00:46)
[2017-08-18] MEDS ORDERED: Magnesium Hydroxide 400 MG/5 ML Susp 30 ML Cup PO PRN (00:46)
[2017-08-18] MEDS: methylPREDNISolone Sodium Succinate 40 MG/1 ML SDV IVPUSH SCH ×4 (02:49→20:59)
[2017-08-18] MEDS: Enoxaparin 40 MG/0.4 ML Syringe SUBCUT SCH ×2 (02:49→20:57)
[2017-08-18] MEDS ORDERED: Albuterol/Ipratropium 3.0-0.5 MG/3 ML Neb Soln NEB SCH (06:00)
[2017-08-18] MEDS: Albuterol/Ipratropium 3.0-0.5 MG/3 ML Neb Soln NEB SCH ×4 (07:24→20:55)
--- NOTE | 2017-08-18 09:01 | CR ---
Chest 1V Frontal FINDINGS: There is advanced hyperinflation consistent with COPD. The heart and vascular structures ar e normal in appearance. No infiltrates or effusions are demonstrated. The skeletal structures are unr emarkable. IMPRESSION: 1. COPD. 2. No acute findings.
[2017-08-18] MEDS: Levothyroxine 75 MCG Tab PO SCH (10:48)
--- NOTE | 2017-08-18 12:06 | PCM.PN ---
- General Info Date of Service: 08/18/17 Subjective Update: Ms. Babb has improved since admission, less shortness of breath but is not yet back to baseline. She has remained afebrile and hemodynamically stable, still no evidence of significant underlying infection. - Review of Systems General: Reports: Weakness. Denies: Fever, Chills Pulmonary: Reports: Shortness of Breath, Wheezing. Denies: Cough, Sputum, Hemoptysis Cardiovascular: Reports: Dyspnea on Exertion. Denies: Chest Pain, Palpitations , Orthopnea, PND, Edema, Lightheadedness Gastrointestinal: Reports: No Symptoms - Patient Data Vitals - Most Recent: Last Vital Signs Temp 97.5 F 08/18/17 10:58 Pulse 106 H 08/18/17 11:16 Resp 18 08/18/17 10:58 BP 147/66 H 08/18/17 10:58 Pulse Ox 98 08/18/17 10:58 Weight - Most Recent: 106 lb 12.8 oz I&O - Last 24 Hours: Intake & Output 08/17/17 08/18/17 08/18/17 22:59 06:59 14:59 Intake Total 400 Output Total 900 200 Balance -900 200 Lab Results Last 24 Hours: Laboratory Results - last 24 hr 08/18/17 Range/Units 04:50 Sodium 138 L (140-148) mmol/L Potassium 4.5 (3.6-5.2) mmol/L Chloride 102 (100-108) mmol/L Carbon Dioxide 35 H (21-32) mmol/L Anion Gap 5.5 (5.0-14.0) mmol/L BUN 17 (7-18) mg/dL Creatinine 0.7 (0.6-1.0) mg/dL Est Cr Clr Drug Dosing 44.31 mL/min Estimated GFR (MDRD) > 60 (>60) Glucose 177 H (74-106) mg/dL Calcium 9.2 (8.5-10.1) mg/dL Med Orders - Current: Current Medications Acetaminophen (Tylenol) 650 mg PO Q4H PRN PRN Reason: Pain (Mild 1-3)/fever Albuterol (Ventolin Hfa) gm INH Q4H PRN PRN Reason: Shortness of Breath Albuterol (Proventil Neb Soln) 2.5 mg NEB Q4H PRN PRN Reason: Shortness Of Breath/wheezing Albuterol/Ipratropium (Duoneb 3.0-0.5 Mg/3 Ml) 3 ml NEB QIDRT [facility] Last Admin: 08/18/17 11:16 Dose: 3 ml Enoxaparin Sodium (Lovenox) 40 mg SUBCUT BEDTIME [facility] Last Admin: 08/18/17 02:49 Dose: 40 mg Levothyroxine Sodium (Levothyroxine) 75 mcg PO DAILY@0730 [facility] Last Admin: 08/18/17 10:48 Dose: Not Given Magnesium Hydroxide (Milk Of Magnesia) 30 ml PO Q12H PRN PRN Reason: Constipation Methylprednisolone Sodium Succinate (Solu-Medrol) 40 mg IVPUSH Q6H [facility] Last Admin: 08/18/17 10:00 Dose: 40 mg Non-Formulary Medication (Umeclidinium Brm/Vilanterol Tr [Anoro Ellipta 62.5-25 Mcg Inh]) 1 each IH DAILY [facility] Ondansetron HCl (Zofran) 4 mg IV Q4H PRN PRN Reason: Nausea/Vomiting Oxycodone HCl (Oxycodone) 5 mg PO Q4H PRN PRN Reason: Pain (moderate 4-6) Polyethylene Glycol (Miralax) 17 gm PO DAILY PRN PRN Reason: Constipation Senna/Docusate Sodium (Senna Plus) 1 tab PO BID PRN PRN Reason: Constipation Sodium Chloride (Saline Flush) 10 ml FLUSH ASDIRECTED PRN PRN Reason: Keep Vein Open Discontinued Medications Albuterol/Ipratropium (Duoneb 3.0-0.5 Mg/3 Ml) 3 ml NEB ONETIME ONE Stop: 08/17/17 20:48 Last Admin: 08/17/17 20:50 Dose: 3 ml Albuterol/Ipratropium (Duoneb 3.0-0.5 Mg/3 Ml) 3 ml NEB QID [facility] Albuterol/Ipratropium (Duoneb 3.0-0.5 Mg/3 Ml) Confirm Administered Dose 3 ml .ROUTE .STK-MED ONE Stop: 08/17/17 20:48 Lactated Ringer's (Ringers, Lactated) 1,000 mls @ 1,000 mls/hr IV BOLUS ONE Stop: 08/17/17 22:48 Last Admin: 08/17/17 22:02 Dose: 1,000 mls/hr Lorazepam (Ativan) 0.5 mg IVPUSH ONETIME ONE Stop: 08/17/17 21:01 Last Admin: 08/17/17 21:25 Dose: 0.25 ml Methylprednisolone Sodium Succinate (Solu-Medrol) 40 mg IVPUSH ONETIME ONE Stop: 08/17/17 20:51 Last Admin: 08/17/17 21:21 Dose: 40 mg Sodium Chloride (Saline Flush) 10 ml FLUSH ASDIRECTED PRN PRN Reason: Keep Vein Open Last Admin: 08/17/17 21:26 Dose: 10 ml - Exam Quality Assessment: Supplemental Oxygen, DVT Prophylaxis General: Alert, Oriented, Cooperative, Mild Distress Lungs: Decreased Breath Sounds, Wheezing. No: Crackles, Rales, Rhonchi Cardiovascular: Regular Rate, Regular Rhythm, No Murmurs GI/Abdominal Exam: Soft, Non-Tender, No Organomegaly, No Distention Extremities: Non-Tender, No Pedal Edema Skin: Warm, Dry, Intact - Problem List Review Problem List Initiated/Reviewed/Updated: Yes - My Orders Last 24 Hours: My Active Orders 08/18/17 01:15 Enoxaparin [Lovenox] 40 mg SUBCUT BEDTIME 08/18/17 03:00 methylPREDNISolone Sod Succ [Solu-MEDROL] 40 mg IVPUSH Q6H 08/18/17 04:15 RT Aerosol Therapy [RC] ASDIRECTED 08/18/17 07:00 Albuterol/Ipratropium [DuoNeb 3.0-0.5 MG/3 ML] 3 ml NEB QIDRT - Plan Plan:: ASSESSMENT AND PLAN COPD EXACERBATION WITH ACUTE ON CHRONIC HYPOXIA AND HYPERCAPNIA-improved since admission with current management -Saline lock IV -Nebulized albuterol and duo nebs -Solu-Medrol 40 mg IV every 6 hours -Hold on antibiotic therapy, no evidence of underlying bacterial infection HYPOTHYROIDISM -Continue outpatient thyroid replacement MAINTENANCE ISSUES -DVT prophylaxis; Lovenox 40 mg subcutaneous daily -GI prophylaxis; not indicated -Alejandro catheter; not indicated -Nutrition; regular diet -Nicotine dependence; not required CODE STATUS-FULL CODE, reviewed with patient and daughter this evening ADMISSION STATUS-this patient will be admitted to observation status, expect no more than a one night hospital stay for evaluation and management of problems as outlined above. DISPOSITION-anticipate discharge to home after the hospital stay. PRIMARY CARE PROVIDER-Dr. Wilhelm
[2017-08-18] MEDS: Non-Formulary Medication 1 Each (Umeclidinium Brm/Vilanterol Tr [Anoro Ellipta 62.5-25 Mcg IH SCH (14:47)
[2017-08-19] MEDS: methylPREDNISolone Sodium Succinate 40 MG/1 ML SDV IVPUSH SCH ×4 (03:18→21:34)
[2017-08-19] MEDS: Albuterol 0.083% 2.5 MG/3 ML Neb Soln NEB PRN ×2 (03:52→19:17)
[2017-08-19] MEDS: Albuterol/Ipratropium 3.0-0.5 MG/3 ML Neb Soln NEB SCH ×4 (07:20→21:31)
[2017-08-19] MEDS: Levothyroxine 75 MCG Tab PO SCH (07:27)
[2017-08-19] MEDS: Non-Formulary Medication 1 Each (Umeclidinium Brm/Vilanterol Tr [Anoro Ellipta 62.5-25 Mcg IH SCH (08:23)
[2017-08-19] MEDS ORDERED: LORazepam ORAL Concentrate 1MG/0.5ML U/D PO PRN (12:11)
--- NOTE | 2017-08-19 12:20 | PCM.PN ---
- General Info Date of Service: 08/19/17 Subjective Update: Ms. Babb is experiencing increased symptoms of shortness of breath today, compared to yesterday. Minimal exertion such as going to the bathroom or talking even for a few minutes leaves her very short of breath. Heart rate has been intermittently elevated. Vital signs are otherwise stable and she has remained afebrile. - Review of Systems General: Reports: Weakness. Denies: Fever, Chills Pulmonary: Reports: Shortness of Breath, Cough, Wheezing. Denies: Pleuritic Chest Pain, Sputum Cardiovascular: Reports: Dyspnea on Exertion. Denies: Chest Pain, Palpitations , Orthopnea, PND, Edema, Lightheadedness Gastrointestinal: Reports: No Symptoms - Patient Data Vitals - Most Recent: Last Vital Signs Temp 97.8 F 08/19/17 10:15 Pulse 116 H 08/19/17 10:41 Resp 18 08/19/17 10:15 BP 141/60 H 08/19/17 10:15 Pulse Ox 97 08/19/17 10:15 Weight - Most Recent: 106 lb 12.8 oz I&O - Last 24 Hours: Intake & Output 08/18/17 08/19/17 08/19/17 22:59 06:59 14:59 Intake Total 300 600 Balance 300 600 Med Orders - Current: Current Medications Acetaminophen (Tylenol) 650 mg PO Q4H PRN PRN Reason: Pain (Mild 1-3)/fever Albuterol (Ventolin Hfa) 0 gm INH Q4H PRN PRN Reason: Shortness of Breath Albuterol (Proventil Neb Soln) 2.5 mg NEB Q4H PRN PRN Reason: Shortness Of Breath/wheezing Last Admin: 08/19/17 03:52 Dose: 2.5 mg Albuterol/Ipratropium (Duoneb 3.0-0.5 Mg/3 Ml) 3 ml NEB QIDRT [facility] Last Admin: 08/19/17 10:41 Dose: 3 ml Enoxaparin Sodium (Lovenox) 40 mg SUBCUT BEDTIME [facility] Last Admin: 08/18/17 20:57 Dose: 40 mg Levofloxacin/Dextrose 500 mg/ (Premix) 100 mls @ 100 mls/hr IV Q24H [facility] Levothyroxine Sodium (Levothyroxine) 75 mcg PO DAILY@0730 [facility] Lorazepam (Ativan Oral Concentrate 1mg/0.5 Ml U/D) 0.25 mg PO Q2H PRN PRN Reason: Anxiety Magnesium Hydroxide (Milk Of Magnesia) 30 ml PO Q12H PRN PRN Reason: Constipation Methylprednisolone Sodium Succinate (Solu-Medrol) 40 mg IVPUSH Q6H [facility] Last Admin: 08/19/17 08:22 Dose: 40 mg Morphine Sulfate (Morphine 10 Mg/0.5 Ml Oral Syringe) 2.5 mg PO Q1H PRN PRN Reason: Dyspnea Non-Formulary Medication (Umeclidinium Brm/Vilanterol Tr [Anoro Ellipta 62.5-25 Mcg Inh]) 1 each IH DAILY [facility] Last Admin: 08/19/17 08:23 Dose: Not Given Ondansetron HCl (Zofran) 4 mg IV Q4H PRN PRN Reason: Nausea/Vomiting Oxycodone HCl (Oxycodone) 5 mg PO Q4H PRN PRN Reason: Pain (moderate 4-6) Polyethylene Glycol (Miralax) 17 gm PO DAILY PRN PRN Reason: Constipation Senna/Docusate Sodium (Senna Plus) 1 tab PO BID PRN PRN Reason: Constipation Sodium Chloride (Saline Flush) 10 ml FLUSH ASDIRECTED PRN PRN Reason: Keep Vein Open Discontinued Medications Albuterol/Ipratropium (Duoneb 3.0-0.5 Mg/3 Ml) 3 ml NEB ONETIME ONE Stop: 08/17/17 20:48 Last Admin: 08/17/17 20:50 Dose: 3 ml Albuterol/Ipratropium (Duoneb 3.0-0.5 Mg/3 Ml) 3 ml NEB QID [facility] Albuterol/Ipratropium (Duoneb 3.0-0.5 Mg/3 Ml) Confirm Administered Dose 3 ml .ROUTE .STK-MED ONE Stop: 08/17/17 20:48 Last Admin: 08/18/17 13:25 Dose: Not Given Lactated Ringer's (Ringers, Lactated) 1,000 mls @ 1,000 mls/hr IV BOLUS ONE Stop: 08/17/17 22:48 Last Admin: 08/17/17 22:02 Dose: 1,000 mls/hr Levothyroxine Sodium (Levothyroxine) 75 mcg PO DAILY@0730 [facility] Last Admin: 08/19/17 07:27 Dose: 75 mcg Lorazepam (Ativan) 0.5 mg IVPUSH ONETIME ONE Stop: 08/17/17 21:01 Last Admin: 08/17/17 21:25 Dose: 0.25 ml Methylprednisolone Sodium Succinate (Solu-Medrol) 40 mg IVPUSH ONETIME ONE Stop: 08/17/17 20:51 Last Admin: 08/17/17 21:21 Dose: 40 mg Sodium Chloride (Saline Flush) 10 ml FLUSH ASDIRECTED PRN PRN Reason: Keep Vein Open Last Admin: 08/17/17 21:26 Dose: 10 ml - Exam Quality Assessment: Supplemental Oxygen, DVT Prophylaxis General: Alert, Oriented, Cooperative, Moderate Distress Lungs: Decreased Breath Sounds, Wheezing. No: Crackles, Rales, Rhonchi Cardiovascular: Regular Rate, Regular Rhythm, No Murmurs GI/Abdominal Exam: Soft, Non-Tender, No Organomegaly, No Distention Extremities: Non-Tender, No Pedal Edema Skin: Warm, Dry, Intact - Problem List Review Problem List Initiated/Reviewed/Updated: Yes - My Orders Last 24 Hours: My Active Orders 08/19/17 12:11 LORazepam [Ativan ORAL Concentrate 1MG/0.5 ML U/D] 0.25 mg PO Q2H PRN Morphine [Morphine 10 MG/0.5 ML Oral Syringe] 2.5 mg PO Q1H PRN 08/19/17 12:15 Levofloxacin/Dextrose 5%-Water [Levaquin in D5W 500 MG/100 ML] 500 mg Premix Bag 1 bag IV Q24H 08/20/17 07:30 Levothyroxine 75 mcg PO DAILY@0730 - Plan Plan:: ASSESSMENT AND PLAN 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 Given significant lack of improvement with current management will add empiric antibiotic therapy with levofloxacin 500 mg IV daily -Saline lock IV -Nebulized albuterol and duo nebs -Solu-Medrol 40 mg IV every 6 hours -Levafloxacin 500 mg IV every 24 hours HYPOTHYROIDISM -Continue outpatient thyroid replacement MAINTENANCE ISSUES -DVT prophylaxis; Lovenox 40 mg subcutaneous daily -GI prophylaxis; not indicated -Alejandro catheter; not indicated -Nutrition; regular diet -Nicotine dependence; not required CODE STATUS-FULL CODE, reviewed with patient and daughter this evening ADMISSION STATUS-this patient will be admitted to observation status, expect no more than a one night hospital stay for evaluation and management of problems as outlined above. DISPOSITION-anticipate discharge to home after the hospital stay. PRIMARY CARE PROVIDER-Dr. Wilhelm
[2017-08-19] MEDS: Morphine 10 MG/0.5 ML Oral Syringe PO PRN ×4 (12:34→22:44)
[2017-08-19] MEDS: Levofloxacin/Dextrose 5%-Water 500 MG in Premix Bag 1 BAG IV SCH (12:53)
[2017-08-19] MEDS: Enoxaparin 40 MG/0.4 ML Syringe SUBCUT SCH (21:34)
[2017-08-20] MEDS: Albuterol 0.083% 2.5 MG/3 ML Neb Soln NEB PRN (04:56)
[2017-08-20] MEDS: Morphine 10 MG/0.5 ML Oral Syringe PO PRN ×6 (04:57→23:00)
[2017-08-20] MEDS: methylPREDNISolone Sodium Succinate 40 MG/1 ML SDV IVPUSH SCH ×3 (05:00→21:40)
[2017-08-20] MEDS: Albuterol/Ipratropium 3.0-0.5 MG/3 ML Neb Soln NEB SCH ×4 (07:18→21:29)
[2017-08-20] MEDS: Non-Formulary Medication 1 Each (Umeclidinium Brm/Vilanterol Tr [Anoro Ellipta 62.5-25 Mcg IH SCH (09:48)
[2017-08-20] MEDS: Levofloxacin/Dextrose 5%-Water 500 MG in Premix Bag 1 BAG IV SCH (12:52)
--- NOTE | 2017-08-20 13:17 | PCM.PN ---
- General Info Date of Service: 08/20/17 Subjective Update: Ms. Babb has had ongoing difficulty with shortness of breath over the past 24 hours, we did initiate palliative care measures yesterday, including morphine and lorazepam. She has had a chance to consider her goals for ongoing care since yesterday. At the present time she feels like her overriding concern is management for comfort. She realizes that her lung disease is very advanced and not likely to improve significantly. She would like to discuss hospice care and be changed to DNR/DNI comfort cares only. - Review of Systems General: Reports: Weakness. Denies: Fever, Chills Pulmonary: Reports: Shortness of Breath, Cough, Wheezing. Denies: Sputum, Hemoptysis Cardiovascular: Reports: Dyspnea on Exertion. Denies: Chest Pain, Palpitations , Orthopnea, PND, Edema, Lightheadedness Gastrointestinal: Reports: No Symptoms - Patient Data Vitals - Most Recent: Last Vital Signs Temp 97.1 F 08/20/17 11:01 Pulse 121 H 08/20/17 11:01 Resp 20 08/20/17 11:01 BP 171/100 H 08/20/17 11:01 Pulse Ox 96 08/20/17 11:01 Weight - Most Recent: 236 lb 12.423 oz Med Orders - Current: Current Medications Acetaminophen (Tylenol) 650 mg PO Q4H PRN PRN Reason: Pain (Mild 1-3)/fever Albuterol (Ventolin Hfa) 0 gm INH Q4H PRN PRN Reason: Shortness of Breath Albuterol (Proventil Neb Soln) 2.5 mg NEB Q4H PRN PRN Reason: Shortness Of Breath/wheezing Last Admin: 08/20/17 04:56 Dose: 2.5 mg Albuterol/Ipratropium (Duoneb 3.0-0.5 Mg/3 Ml) 3 ml NEB QIDRT [facility] Last Admin: 08/20/17 10:35 Dose: 3 ml Enoxaparin Sodium (Lovenox) 40 mg SUBCUT BEDTIME [facility] Last Admin: 08/19/17 21:34 Dose: 40 mg Levofloxacin/Dextrose 500 mg/ (Premix) 100 mls @ 100 mls/hr IV Q24H [facility] Last Admin: 08/20/17 12:52 Dose: 100 mls/hr Levothyroxine Sodium (Levothyroxine) 75 mcg PO DAILY@0730 [facility] Last Admin: 08/20/17 07:35 Dose: 75 mcg Lorazepam (Ativan Oral Concentrate 1mg/0.5 Ml U/D) 0.5 mg PO Q2H PRN PRN Reason: Anxiety Magnesium Hydroxide (Milk Of Magnesia) 30 ml PO Q12H PRN PRN Reason: Constipation Methylprednisolone Sodium Succinate (Solu-Medrol) 40 mg IVPUSH Q12H [facility] Morphine Sulfate (Morphine 10 Mg/0.5 Ml Oral Syringe) 5 mg PO Q1H PRN PRN Reason: Dyspnea Non-Formulary Medication (Umeclidinium Brm/Vilanterol Tr [Anoro Ellipta 62.5-25 Mcg Inh]) 1 each IH DAILY [facility] Last Admin: 08/20/17 09:48 Dose: Not Given Ondansetron HCl (Zofran) 4 mg IV Q4H PRN PRN Reason: Nausea/Vomiting Polyethylene Glycol (Miralax) 17 gm PO DAILY PRN PRN Reason: Constipation Senna/Docusate Sodium (Senna Plus) 1 tab PO BID PRN PRN Reason: Constipation Sodium Chloride (Saline Flush) 10 ml FLUSH ASDIRECTED PRN PRN Reason: Keep Vein Open Discontinued Medications Albuterol/Ipratropium (Duoneb 3.0-0.5 Mg/3 Ml) 3 ml NEB ONETIME ONE Stop: 08/17/17 20:48 Last Admin: 08/17/17 20:50 Dose: 3 ml Albuterol/Ipratropium (Duoneb 3.0-0.5 Mg/3 Ml) 3 ml NEB QID [facility] Albuterol/Ipratropium (Duoneb 3.0-0.5 Mg/3 Ml) Confirm Administered Dose 3 ml .ROUTE .STK-MED ONE Stop: 08/17/17 20:48 Last Admin: 08/18/17 13:25 Dose: Not Given Lactated Ringer's (Ringers, Lactated) 1,000 mls @ 1,000 mls/hr IV BOLUS ONE Stop: 08/17/17 22:48 Last Admin: 08/17/17 22:02 Dose: 1,000 mls/hr Levothyroxine Sodium (Levothyroxine) 75 mcg PO DAILY@0730 [facility] Last Admin: 08/19/17 07:27 Dose: 75 mcg Lorazepam (Ativan) 0.5 mg IVPUSH ONETIME ONE Stop: 08/17/17 21:01 Last Admin: 08/17/17 21:25 Dose: 0.25 ml Lorazepam (Ativan Oral Concentrate 1mg/0.5 Ml U/D) 0.25 mg PO Q2H PRN PRN Reason: Anxiety Last Admin: 08/20/17 01:12 Dose: 0.25 mg Methylprednisolone Sodium Succinate (Solu-Medrol) 40 mg IVPUSH ONETIME ONE Stop: 08/17/17 20:51 Last Admin: 08/17/17 21:21 Dose: 40 mg Methylprednisolone Sodium Succinate (Solu-Medrol) 40 mg IVPUSH Q6H [facility] Last Admin: 08/20/17 09:48 Dose: 40 mg Morphine Sulfate (Morphine 10 Mg/0.5 Ml Oral Syringe) 2.5 mg PO Q1H PRN PRN Reason: Dyspnea Last Admin: 08/20/17 12:51 Dose: 2.5 mg Oxycodone HCl (Oxycodone) 5 mg PO Q4H PRN PRN Reason: Pain (moderate 4-6) Sodium Chloride (Saline Flush) 10 ml FLUSH ASDIRECTED PRN PRN Reason: Keep Vein Open Last Admin: 08/17/17 21:26 Dose: 10 ml - Exam Quality Assessment: Supplemental Oxygen, DVT Prophylaxis General: Alert, Oriented, Cooperative, Moderate Distress Lungs: Decreased Breath Sounds, Wheezing. No: Crackles, Rales, Rhonchi, Rub Cardiovascular: No Murmurs, Irregular Rhythm, Tachycardia GI/Abdominal Exam: Soft, Non-Tender, No Organomegaly, No Distention Back Exam: Normal Inspection, Full Range of Motion Extremities: Non-Tender, No Pedal Edema - Problem List Review Problem List Initiated/Reviewed/Updated: Yes - My Orders Last 24 Hours: My Active Orders 08/19/17 12:30 Levofloxacin/Dextrose 5%-Water [Levaquin in D5W 500 MG/100 ML] 500 mg Premix Bag 1 bag IV Q24H 08/20/17 07:30 Levothyroxine 75 mcg PO DAILY@0730 08/20/17 13:10 LORazepam [Ativan ORAL Concentrate 1MG/0.5 ML U/D] 0.5 mg PO Q2H PRN 08/20/17 13:11 Morphine [Morphine 10 MG/0.5 ML Oral Syringe] 5 mg PO Q1H PRN 08/20/17 13:15 methylPREDNISolone Sod Succ [Solu-MEDROL] 40 mg IVPUSH Q12H - Plan Plan:: ASSESSMENT AND PLAN COPD EXACERBATION WITH ACUTE ON CHRONIC HYPOXIA AND HYPERCAPNIA-ongoing difficulty with severe shortness of breath, no significant improvement with current management. She would like to proceed with comfort cares only, but continues Solu-Medrol and antibiotic therapy for the present time. She would like to consider hospice status and return home. -Hospice consult -Saline lock IV -Nebulized albuterol and duo nebs -Solu-Medrol 40 mg IV every 6 hours -Levafloxacin 500 mg IV every 24 hours -Morphine and lorazepam as needed for comfort HYPOTHYROIDISM -Continue outpatient thyroid replacement MAINTENANCE ISSUES -DVT prophylaxis; Lovenox 40 mg subcutaneous daily -GI prophylaxis; not indicated -Alejandro catheter; not indicated -Nutrition; regular diet -Nicotine dependence; not required CODE STATUS- DNR/DNI, comfort cares only ADMISSION STATUS-this patient will be admitted to observation status, expect no more than a one night hospital stay for evaluation and management of problems as outlined above. DISPOSITION-anticipate discharge to home after the hospital stay. PRIMARY CARE PROVIDER-Dr. Wilhelm
[2017-08-20] MEDS: LORazepam ORAL Concentrate 1MG/0.5ML U/D PO PRN ×3 (14:30→21:53)
[2017-08-20] MEDS: ANORO ELLIPTA INH SCH (16:00)
[2017-08-20] MEDS: Enoxaparin 40 MG/0.4 ML Syringe SUBCUT SCH (21:38)
[2017-08-21] MEDS: Morphine 10 MG/0.5 ML Oral Syringe PO PRN ×3 (04:59→21:48)
[2017-08-21] MEDS: Albuterol/Ipratropium 3.0-0.5 MG/3 ML Neb Soln NEB SCH ×4 (07:27→21:00)
[2017-08-21] MEDS: ANORO ELLIPTA INH SCH (07:29)
[2017-08-21] MEDS: LORazepam ORAL Concentrate 1MG/0.5ML U/D PO PRN ×4 (08:08→20:12)
[2017-08-21] MEDS: Albuterol 0.083% 2.5 MG/3 ML Neb Soln NEB PRN ×2 (08:09→08:29)
[2017-08-21] MEDS: methylPREDNISolone Sodium Succinate 40 MG/1 ML SDV IVPUSH SCH (08:33)
[2017-08-21] MEDS ORDERED: Levofloxacin 500 MG Tab PO SCH (13:00)
--- NOTE | 2017-08-21 15:33 | PCM.PN ---
- General Info Date of Service: 08/21/17 Functional Status: Reports: Pain Controlled - Review of Systems General: Reports: Weakness Pulmonary: Reports: Shortness of Breath Systems Review Comment:: There were no acute events overnight. She has become more short of breath and more tachycardic since yesterday. She feels like her shortness of breath is stable compared to yesterday. She does get relief from morphine and lorazepam. She did consult with hospice and her family this afternoon and the plan is for discharge to home with hospice tomorrow. - Patient Data Vitals - Most Recent: Last Vital Signs Temp 36.2 C 08/21/17 07:00 Pulse 122 H 08/21/17 14:29 Resp 18 08/21/17 10:49 BP 159/70 H 08/21/17 07:00 Pulse Ox 100 08/21/17 14:29 Weight - Most Recent: 107.4 kg I&O - Last 24 Hours: Intake & Output 08/21/17 08/21/17 08/21/17 06:59 14:59 22:59 Output Total 200 200 100 Balance -200 -200 -100 Med Orders - Current: Current Medications Acetaminophen (Tylenol) 650 mg PO Q4H PRN PRN Reason: Pain (Mild 1-3)/fever Albuterol (Ventolin Hfa) 0 gm INH Q4H PRN PRN Reason: Shortness of Breath Albuterol (Proventil Neb Soln) 2.5 mg NEB Q4H PRN PRN Reason: Shortness Of Breath/wheezing Last Admin: 08/21/17 08:29 Dose: 2.5 mg Albuterol/Ipratropium (Duoneb 3.0-0.5 Mg/3 Ml) 3 ml NEB QIDRT [facility] Last Admin: 08/21/17 14:28 Dose: 3 ml Enoxaparin Sodium (Lovenox) 40 mg SUBCUT BEDTIME [facility] Last Admin: 08/20/17 21:38 Dose: 40 mg Levofloxacin (Levaquin) 500 mg PO Q24H [facility] Levothyroxine Sodium (Levothyroxine) 75 mcg PO DAILY@0730 [facility] Lorazepam (Ativan Oral Concentrate 1mg/0.5 Ml U/D) 0.5 - 1 mg PO Q2H PRN PRN Reason: Anxiety Last Admin: 08/21/17 09:26 Dose: 0.5 mg Magnesium Hydroxide (Milk Of Magnesia) 30 ml PO Q12H PRN PRN Reason: Constipation Morphine Sulfate (Morphine 10 Mg/0.5 Ml Oral Syringe) 5 - 10 mg PO Q1H PRN PRN Reason: Dyspnea Ondansetron HCl (Zofran) 4 mg IV Q4H PRN PRN Reason: Nausea/Vomiting Anoro Ellipta 62.5/ (25mcg Inhaler (Ptom)) 0 each INH DAILYRT [facility] Last Admin: 08/21/17 07:29 Dose: 1 each Polyethylene Glycol (Miralax) 17 gm PO DAILY PRN PRN Reason: Constipation Prednisone (Prednisone) 20 mg PO BIDMEALS [facility] Senna/Docusate Sodium (Senna Plus) 1 tab PO BID PRN PRN Reason: Constipation Sodium Chloride (Saline Flush) 10 ml FLUSH ASDIRECTED PRN PRN Reason: Keep Vein Open Discontinued Medications Albuterol/Ipratropium (Duoneb 3.0-0.5 Mg/3 Ml) 3 ml NEB ONETIME ONE Stop: 08/17/17 20:48 Last Admin: 08/17/17 20:50 Dose: 3 ml Albuterol/Ipratropium (Duoneb 3.0-0.5 Mg/3 Ml) 3 ml NEB QID [facility] Albuterol/Ipratropium (Duoneb 3.0-0.5 Mg/3 Ml) Confirm Administered Dose 3 ml .ROUTE .STK-MED ONE Stop: 08/17/17 20:48 Last Admin: 08/18/17 13:25 Dose: Not Given Lactated Ringer's (Ringers, Lactated) 1,000 mls @ 1,000 mls/hr IV BOLUS ONE Stop: 08/17/17 22:48 Last Admin: 08/17/17 22:02 Dose: 1,000 mls/hr Levofloxacin/Dextrose 500 mg/ (Premix) 100 mls @ 100 mls/hr IV Q24H [facility] Last Admin: 08/20/17 12:52 Dose: 100 mls/hr Levothyroxine Sodium (Levothyroxine) 75 mcg PO DAILY@0730 [facility] Last Admin: 08/19/17 07:27 Dose: 75 mcg Levothyroxine Sodium (Levothyroxine) 75 mcg PO DAILY@0730 [facility] Last Admin: 08/21/17 09:41 Dose: Not Given Lorazepam (Ativan) 0.5 mg IVPUSH ONETIME ONE Stop: 08/17/17 21:01 Last Admin: 08/17/17 21:25 Dose: 0.25 ml Lorazepam (Ativan Oral Concentrate 1mg/0.5 Ml U/D) 0.25 mg PO Q2H PRN PRN Reason: Anxiety Last Admin: 08/20/17 01:12 Dose: 0.25 mg Lorazepam (Ativan Oral Concentrate 1mg/0.5 Ml U/D) 0.5 mg PO Q2H PRN PRN Reason: Anxiety Last Admin: 08/21/17 08:08 Dose: 0.5 mg Methylprednisolone Sodium Succinate (Solu-Medrol) 40 mg IVPUSH ONETIME ONE Stop: 08/17/17 20:51 Last Admin: 08/17/17 21:21 Dose: 40 mg Methylprednisolone Sodium Succinate (Solu-Medrol) 40 mg IVPUSH Q6H [facility] Last Admin: 08/20/17 09:48 Dose: 40 mg Methylprednisolone Sodium Succinate (Solu-Medrol) 40 mg IVPUSH Q12H [facility] Last Admin: 08/21/17 08:33 Dose: 40 mg Morphine Sulfate (Morphine 10 Mg/0.5 Ml Oral Syringe) 2.5 mg PO Q1H PRN PRN Reason: Dyspnea Last Admin: 08/20/17 12:51 Dose: 2.5 mg Morphine Sulfate (Morphine 10 Mg/0.5 Ml Oral Syringe) 5 mg PO Q1H PRN PRN Reason: Dyspnea Last Admin: 08/21/17 08:15 Dose: 5 mg Non-Formulary Medication (Umeclidinium Brm/Vilanterol Tr [Anoro Ellipta 62.5-25 Mcg Inh]) 1 each IH DAILY [facility] Last Admin: 08/20/17 09:48 Dose: Not Given Oxycodone HCl (Oxycodone) 5 mg PO Q4H PRN PRN Reason: Pain (moderate 4-6) Sodium Chloride (Saline Flush) 10 ml FLUSH ASDIRECTED PRN PRN Reason: Keep Vein Open Last Admin: 08/17/17 21:26 Dose: 10 ml - Exam Quality Assessment: Supplemental Oxygen General: Alert, Cooperative, No Acute Distress, Lethargic Lungs: Normal Respiratory Effort, Wheezing (moderate exp wheezing) Cardiovascular: Regular Rhythm, Tachycardia GI/Abdominal Exam: Soft, No Distention Extremities: No Pedal Edema Skin: Warm, Dry Psy/Mental Status: Alert. No: Anxious - Problem List Review Problem List Initiated/Reviewed/Updated: Yes - My Orders Last 24 Hours: My Active Orders 08/21/17 08:52 LORazepam [Ativan ORAL Concentrate 1MG/0.5 ML U/D] 0.5 - 1 mg PO Q2H PRN Morphine [Morphine 10 MG/0.5 ML Oral Syringe] 5 - 10 mg PO Q1H PRN 08/21/17 13:00 Levofloxacin [Levaquin] 500 mg PO Q24H 08/21/17 17:00 predniSONE 20 mg PO BIDMEALS - Plan Plan:: ASSESSMENT AND PLAN COPD EXACERBATION WITH ACUTE ON CHRONIC HYPOXIA AND HYPERCAPNIA - ongoing difficulty with severe shortness of breath, no significant improvement with current management. She has been transitioned to comfort cares only. She seems to be declining over the past several days. -Hospice consult completed this afternoon -Saline lock IV -Nebulized albuterol and duo nebs -Transition to prednisone -Levafloxacin by mouth this afternoon -Morphine and lorazepam as needed for comfort HYPOTHYROIDISM -Continue outpatient thyroid replacement MAINTENANCE ISSUES -DVT prophylaxis; not indicated, comfort care only -GI prophylaxis; not indicated -Alejandro catheter; not indicated -Nutrition; regular diet CODE STATUS- DNR/DNI, comfort cares only DISPOSITION - anticipate discharge to home with hospice tomorrow. Ravi Lorenz MD
[2017-08-21] MEDS: predniSONE 20 MG Tab PO SCH (16:06)
[2017-08-21 19:37] VITALS: BP 121/61
[2017-08-22] MEDS: Morphine 10 MG/0.5 ML Oral Syringe PO PRN ×3 (05:45→10:40)
[2017-08-22] MEDS: ANORO ELLIPTA INH SCH (07:00)
[2017-08-22] MEDS: Albuterol/Ipratropium 3.0-0.5 MG/3 ML Neb Soln NEB SCH (07:00)
[2017-08-22] MEDS ORDERED: Levothyroxine 75 MCG Tab PO SCH (07:30)
[2017-08-22] MEDS: LORazepam ORAL Concentrate 1MG/0.5ML U/D PO PRN ×2 (08:10→10:40)
[2017-08-22] MEDS: predniSONE 20 MG Tab PO SCH (08:14)
--- NOTE | 2017-08-22 09:45 | PCM.DCSUM1 ---
Discharge Summary - Hospital Course Brief History: 81-year-old female with history of tobacco dependence, oxygen dependent COPD who presented with progressive cough and shortness of breath. She was admitted for management of an acute exacerbation of COPD with acute respiratory failure with hypoxia and hypercapnia. - Discharge Data Discharge Date: 08/22/17 Discharge Disposition: DC/Tfer to Hospice - Home 50 Condition: Poor - Discharge Diagnosis/Problem(s) (1) COPD exacerbation SNOMED Code(s): 608931123 ICD Code: J44.1 - CHRONIC OBSTRUCTIVE PULMONARY DISEASE W (ACUTE) EXACERBATION Status: Acute Current Visit: Yes (2) Acute respiratory failure with hypoxia and hypercapnia SNOMED Code(s): 50783364, 259059801 ICD Code: J96.01 - ACUTE RESPIRATORY FAILURE WITH HYPOXIA; J96.02 - ACUTE RESPIRATORY FAILURE WITH HYPERCAPNIA Status: Acute Current Visit: Yes (3) Tobacco dependence syndrome SNOMED Code(s): 30006866 ICD Code: F17.200 - NICOTINE DEPENDENCE, UNSPECIFIED, UNCOMPLICATED Status : Chronic Current Visit: No - Patient Summary/Data Hospital Course: Mrs Babb presented to the emergency room with increasing shortness of breath from baseline. Workup in the emergency room revealed a clear chest x-ray but arterial blood gas measurements showed hypoxia and significant hypercapnia. She was admitted to the hospital for management of a COPD exacerbation. She was started on steroids but there was no convincing evidence for infection so antibiotics were not initiated at the time of admission. overnight following admission she did have some improvement initially. Her shortness of breath was better and cough stabilized. Unfortunately over the next 24 hours she had a decline in her respiratory status. She did not have fevers or change in her cough but given the worsening respiratory status antibiotics were initiated. Discussions were held at this point and palliative measures including morphine and lorazepam were initiated but she was not quite ready to move to comfort cares yet. Over the next 24 hours she had additional worsening of her respiratory status. On hospital day 3 she elected to transition to comfort cares only. Antibiotics and steroids were continued at this point but she did not want to escalate cares any further. She was interested in a hospice consultation. On hospital day for the hospice consultation was completed. The plan was for discharge the following morning. She will be on morphine, lorazepam and prednisone. On the day of discharge the patient has declined further. She is short of breath with even minimal activity in the bed. She does wish to be home and has 5 children here to help provide care as she makes her transition to home with hospice. Given her decline over the past few days I would expect that her life expectancy is limited to days or possibly up to a couple of weeks. - Patient Instructions Diet: Usual Diet as Tolerated Activity: As Tolerated Showering/Bathing: May Shower Other/Special Instructions: 1. You were in the hospital for management of an acute exacerbation of your chronic obstructive pulmonary disease. Unfortunately our interventions in the hospital did not provide any benefit. We are concerned that you are at the end-stage of your lung disease and after discussions in the hospital decision to transition to aggressive comfort measures including hospice has been made. You will have prescriptions for morphine to help with air hunger, lorazepam to help with anxiety and we will continue with prednisone. 2. We have placed a referral to hospice through [facility] and they will help ease your transition home and provide ongoing care after discharge from the hospital. - Discharge Plan Prescriptions/Med Rec: LORazepam [Ativan ORAL Concentrate 1MG/0.5 ML U/D] 0.5 - 1 mg PO Q2H PRN #30 ml PRN Reason: Anxiety Morphine [Morphine 10 MG/0.5 ML Oral Syringe] 5 - 10 mg PO Q1H PRN #30 syringe PRN Reason: Dyspnea Prednisone [IJD: predniSONE] 20 mg PO ASDIRECTED #34 tablet Home Medications: Home Meds Levothyroxine Sodium 75 mcg PO DAILY 05/13/14 [History] Albuterol [IMW: Albuterol HFA] 2 puff INH Q4H PRN 06/21/17 [History] Umeclidinium Brm/Vilanterol Tr [Anoro Ellipta 62.5-25 Mcg INH] 1 each IH DAILY 06/21/17 [History] LORazepam [Ativan ORAL Concentrate 1MG/0.5 ML U/D] 0.5 - 1 mg PO Q2H PRN #30 ml 08/22/17 [Rx] Morphine [Morphine 10 MG/0.5 ML Oral Syringe] 5 - 10 mg PO Q1H PRN #30 syringe 08/22/17 [Rx] Prednisone [IJD: predniSONE] 20 mg PO ASDIRECTED #34 tablet 08/22/17 [Rx] Patient Handouts: Chronic Obstructive Pulmonary Disease Exacerbation - Discharge Summary/Plan Comment DC Time >30 min.: Yes (45 - coordinating hospice at time of d/c) - Patient Data Vitals - Most Recent: Last Vital Signs Temp 36.4 C 08/21/17 19:34 Pulse 115 H 08/22/17 09:36 Resp 22 H 08/21/17 19:34 BP 121/61 08/21/17 19:34 Pulse Ox 92 L 08/22/17 09:36 Weight - Most Recent: 107.4 kg I&O - Last 24 hours: Intake & Output 08/21/17 08/22/17 08/22/17 22:59 06:59 14:59 Intake Total 360 Output Total 400 Balance -40 Med Orders - Current: Current Medications Acetaminophen (Tylenol) 650 mg PO Q4H PRN PRN Reason: Pain (Mild 1-3)/fever Albuterol (Ventolin Hfa) 0 gm INH Q4H PRN PRN Reason: Shortness of Breath Albuterol (Proventil Neb Soln) 2.5 mg NEB Q4H PRN PRN Reason: Shortness Of Breath/wheezing Last Admin: 08/21/17 08:29 Dose: 2.5 mg Albuterol/Ipratropium (Duoneb 3.0-0.5 Mg/3 Ml) 3 ml NEB QIDRT [facility] Last Admin: 08/21/17 21:00 Dose: 3 ml Levofloxacin (Levaquin) 500 mg PO Q24H [facility] Last Admin: 08/21/17 16:06 Dose: 500 mg Levothyroxine Sodium (Levothyroxine) 75 mcg PO DAILY@0730 [facility] Lorazepam (Ativan Oral Concentrate 1mg/0.5 Ml U/D) 0.5 - 1 mg PO Q2H PRN PRN Reason: Anxiety Last Admin: 08/21/17 20:12 Dose: 1 mg Magnesium Hydroxide (Milk Of Magnesia) 30 ml PO Q12H PRN PRN Reason: Constipation Morphine Sulfate (Morphine 10 Mg/0.5 Ml Oral Syringe) 5 - 10 mg PO Q1H PRN PRN Reason: Dyspnea Last Admin: 08/21/17 21:48 Dose: 10 mg Ondansetron HCl (Zofran) 4 mg IV Q4H PRN PRN Reason: Nausea/Vomiting Anoro Ellipta 62.5/ (25mcg Inhaler (Ptom)) 0 each INH DAILYRT [facility] Last Admin: 08/21/17 07:29 Dose: 1 each Polyethylene Glycol (Miralax) 17 gm PO DAILY PRN PRN Reason: Constipation Prednisone (Prednisone) 20 mg PO BIDMEALS [facility] Last Admin: 08/21/17 16:06 Dose: 20 mg Senna/Docusate Sodium (Senna Plus) 1 tab PO BID PRN PRN Reason: Constipation Sodium Chloride (Saline Flush) 10 ml FLUSH ASDIRECTED PRN PRN Reason: Keep Vein Open Discontinued Medications Albuterol/Ipratropium (Duoneb 3.0-0.5 Mg/3 Ml) 3 ml NEB ONETIME ONE Stop: 08/17/17 20:48 Last Admin: 08/17/17 20:50 Dose: 3 ml Albuterol/Ipratropium (Duoneb 3.0-0.5 Mg/3 Ml) 3 ml NEB QID KEESHA Albuterol/Ipratropium (Duoneb 3.0-0.5 Mg/3 Ml) Confirm Administered Dose 3 ml .ROUTE .STK-MED ONE Stop: 08/17/17 20:48 Last Admin: 08/18/17 13:25 Dose: Not Given Enoxaparin Sodium (Lovenox) 40 mg SUBCUT BEDTIME [facility] Last Admin: 08/20/17 21:38 Dose: 40 mg Lactated Ringer's (Ringers, Lactated) 1,000 mls @ 1,000 mls/hr IV BOLUS ONE Stop: 08/17/17 22:48 Last Admin: 08/17/17 22:02 Dose: 1,000 mls/hr Levofloxacin/Dextrose 500 mg/ (Premix) 100 mls @ 100 mls/hr IV Q24H [facility] Last Admin: 08/20/17 12:52 Dose: 100 mls/hr Levothyroxine Sodium (Levothyroxine) 75 mcg PO DAILY@30 [facility] Last Admin: 08/19/17 07:27 Dose: 75 mcg Levothyroxine Sodium (Levothyroxine) 75 mcg PO DAILY@0730 [facility] Last Admin: 08/21/17 09:41 Dose: Not Given Lorazepam (Ativan) 0.5 mg IVPUSH ONETIME ONE Stop: 08/17/17 21:01 Last Admin: 08/17/17 21:25 Dose: 0.25 ml Lorazepam (Ativan Oral Concentrate 1mg/0.5 Ml U/D) 0.25 mg PO Q2H PRN PRN Reason: Anxiety Last Admin: 08/20/17 01:12 Dose: 0.25 mg Lorazepam (Ativan Oral Concentrate 1mg/0.5 Ml U/D) 0.5 mg PO Q2H PRN PRN Reason: Anxiety Last Admin: 08/21/17 08:08 Dose: 0.5 mg Methylprednisolone Sodium Succinate (Solu-Medrol) 40 mg IVPUSH ONETIME ONE Stop: 08/17/17 20:51 Last Admin: 08/17/17 21:21 Dose: 40 mg Methylprednisolone Sodium Succinate (Solu-Medrol) 40 mg IVPUSH Q6H [facility] Last Admin: 08/20/17 09:48 Dose: 40 mg Methylprednisolone Sodium Succinate (Solu-Medrol) 40 mg IVPUSH Q12H [facility] Last Admin: 08/21/17 08:33 Dose: 40 mg Morphine Sulfate (Morphine 10 Mg/0.5 Ml Oral Syringe) 2.5 mg PO Q1H PRN PRN Reason: Dyspnea Last Admin: 08/20/17 12:51 Dose: 2.5 mg Morphine Sulfate (Morphine 10 Mg/0.5 Ml Oral Syringe) 5 mg PO Q1H PRN PRN Reason: Dyspnea Last Admin: 08/21/17 08:15 Dose: 5 mg Non-Formulary Medication (Umeclidinium Brm/Vilanterol Tr [Anoro Ellipta 62.5-25 Mcg Inh]) 1 each IH DAILY [facility] Last Admin: 08/20/17 09:48 Dose: Not Given Oxycodone HCl (Oxycodone) 5 mg PO Q4H PRN PRN Reason: Pain (moderate 4-6) Sodium Chloride (Saline Flush) 10 ml FLUSH ASDIRECTED PRN PRN Reason: Keep Vein Open Last Admin: 08/17/17 21:26 Dose: 10 ml - Exam Quality Assessment: Reports: Supplemental Oxygen General: Reports: Alert, Cooperative, Mild Distress Neck: Reports: Supple Lungs: Denies: Normal Respiratory Effort (increased work of breathing ) Cardiovascular: Reports: Regular Rhythm, Tachycardia GI/Abdominal Exam: No Distention Extremities: No Pedal Edema Psy/Mental Status: Reports: Alert, Anxious (mild)
== END 2017-08-22 11:10 | disposition hospice, home (50) | DRG 190 ==
LOC: JP.ED 20:46 → OBSVTOIN 08-18 00:46 → JP.MS 08-18 00:46
PROVIDERS: ADMIT Hospitalist; ATTEND Hospitalist
DX: J44.1 Chronic obstructive pulmonary disease with (acute) exacerbation (principal); J96.21 Acute and chronic respiratory failure with hypoxia; J96.22 Acute and chronic respiratory failure with hypercapnia; E03.9 Hypothyroidism, unspecified; Z99.81 Dependence on supplemental oxygen; Z66 Do not resuscitate; Z87.891 Personal history of nicotine dependence; R06.02 Shortness of breath; R05 Cough; Z51.5 Encounter for palliative care; Z87.01 Personal history of pneumonia (recurrent); Z79.52 Long term (current) use of systemic steroids
CPT/HCPCS: 36415; 36600; 71045 ×2; 80048; 82803; 84484; 85027; 85379; 94640; 96361; 96374; 96375; 99284; 99285; J2060; J2920; J7050; J7120; J7620; 94762; A9270-GY; J1650; J1956